=== PATIENT | male | born 1960 | race Caucasian/White ===

== ENCOUNTER 2020-10-28 07:07 | Outpatient (REF) | payer OTHER, SELFPAY ==
[2020-10-28 07:26] LABS: Hematocrit 46.3 % (42-52); Hemoglobin 15.5 g/dl (14.0-18.0); Mean Corpuscular HGB Conc 33.5 g/dl (31.0-36.0); Mean Corpuscular Hemoglobin 29.3 pg (27.0-33.0); Mean Corpuscular Volume 87.5 fL (80-98); Mean Platelet Volume 8.5 fL (9.4-12.4); Platelet Count 258 X10*3/uL (160-400); Red Blood Count 5.29 X10*6/uL (4.60-5.80); Red Cell Distribution Width 13.2 % (11.0-16.0); White Blood Count 6.1 X10*3/uL (4.8-10.8)
[2020-10-28 07:56] LABS: Alanine Aminotransferase 29 U/L (0-40); Albumin Level 4.2 g/dL (3.5-5.0); Alkaline Phosphatase 72 U/L (39-117); Anion Gap 15 (12-20); Aspartate Amino Transferase 22 U/L (5-37); Bilirubin Direct 0.3 mg/dL (0.0-0.5); Bilirubin Total 0.9 mg/dL (0.0-1.0); Blood Urea Nitrogen 31 mg/dL (9-16); Carbon Dioxide 25 mmol/L (22-29); Chloride 103 mmol/L (96-108); Cholesterol 164 mg/dL; Estimated Glomerular Filt Rate > 60; Glucose Random 116 mg/dL (60-115); HDL Cholesterol 30 mg/dL; LDL Cholesterol Calculated 90 mg/dl; Potassium 4.3 mmol/L (3.3-5.1); Sodium 139 mmol/L (135-145); Total Protein 7.3 g/dL (6.5-8.0); Triglycerides 220 mg/dL
[2020-10-28 08:16] LABS: Thyroid Stimulating Hormone 1.24 uIU/mL (0.32-4.0)
== END 2020-10-28 07:08 | disposition home or self-care (01) ==
LOC: HO.LAB 07:07
PROVIDERS: Visit Provider Internal Medicine
DX: I10 Essential (primary) hypertension (principal)
CPT/HCPCS: 36415; 80048; 80061; 80076; 84443; 85027

== ENCOUNTER 2022-02-09 07:00 | Outpatient (REF) | payer OTHER, SELFPAY ==
[2022-02-09 08:05] LABS: Hematocrit 41.7 % (42.0-52.0); Hemoglobin 14.3 g/dl (14.0-18.0); Mean Corpuscular HGB Conc 34.3 g/dl (31.0-36.0); Mean Corpuscular Hemoglobin 29.9 pg (27.0-33.0); Mean Corpuscular Volume 87.2 fL (80.0-98.0); Mean Platelet Volume 8.9 fL (9.4-12.4); Platelet Count 269 X10*3/uL (160-400); Red Blood Count 4.78 X10*6/uL (4.60-5.80); Red Cell Distribution Width 13.2 % (11.0-16.0); White Blood Count 6.8 X10*3/uL (4.8-10.8)
[2022-02-09 08:22] LABS: Alanine Aminotransferase 31 U/L (0-40); Albumin Level 3.9 g/dL (3.5-5.0); Alkaline Phosphatase 73 U/L (39-117); Anion Gap 11 (12-20); Aspartate Amino Transferase 25 U/L (5-37); Bilirubin Direct 0.2 mg/dL (0.0-0.5); Bilirubin Total 0.6 mg/dL (0.0-1.0); Blood Urea Nitrogen 35 mg/dL (9-16); Calcium 9.5 mg/dL (8.4-10.2); Carbon Dioxide 26 mmol/L (22-29); Chloride 105 mmol/L (96-108); Cholesterol 165 mg/dL; Estimated Glomerular Filt Rate 54; Glucose Random 108 mg/dL (60-115); HDL Cholesterol 31 mg/dL; LDL Cholesterol Calculated 101 mg/dl; Potassium 4.2 mmol/L (3.3-5.1); Sodium 138 mmol/L (135-145); Total Protein 7.1 g/dL (6.5-8.0); Triglycerides 169 mg/dL
[2022-02-09 08:46] LABS: Thyroid Stimulating Hormone 1.42 uIU/mL (0.32-4.0)
== END 2022-02-09 07:01 | disposition home or self-care (01) ==
LOC: HO.LAB 07:00
PROVIDERS: PCP Internal Medicine; Visit Provider Internal Medicine
DX: I10 Essential (primary) hypertension (principal); K21.9 Gastro-esophageal reflux disease without esophagitis
CPT/HCPCS: 36415; 80048; 80061; 80076; 84443; 85027

== ENCOUNTER 2023-03-31 06:44 | Outpatient (REF) | payer OTHER, SELFPAY | END 2023-03-31 06:45 | disposition home or self-care (01) | LOC: HO.LAB 06:44 | PROVIDERS: PCP Internal Medicine; Visit Provider Internal Medicine | DX: K21.9 Gastro-esophageal reflux disease without esophagitis (principal); M16.11 Unilateral primary osteoarthritis, right hip; M17.11 Unilateral primary osteoarthritis, right knee; I10 Essential (primary) hypertension | CPT/HCPCS: 36415; 80048; 80061; 80076; 81003; 84443; 85027 ==

== ENCOUNTER 2023-04-04 15:33 | Outpatient (REF) | payer OTHER, SELFPAY | END 2023-04-04 15:34 | disposition home or self-care (01) | LOC: HO.LAB 15:33 | PROVIDERS: Visit Provider Nurse Practitioner Family | DX: Z12.5 Encounter for screening for malignant neoplasm of prostate (principal) | CPT/HCPCS: 36415; 84153 ==

== ENCOUNTER 2023-10-09 14:00 | Outpatient (AMB) | payer OTHER, SELFPAY ==
--- NOTE | 2023-10-09 13:56 | A.OFFPC_ITS ---
Intake Visit Reasons: HTN, GERD [phone] Intake Note: Patient is here to follow up on HTN, GERD. Auto Damage Adjuster Required: No Track Man: Not Required per policy Accompanied by: Self / Same As Patient Allergies No Known Allergies Allergy (Verified 10/14/23 14:15) Medication List - Last Reconciled 10/14/23 by Garrett Simpson MD diclofenac sodium 1% (Arthritis Pain (diclofenac)) 2 grams topical QID PRN enalapril maleate 10 mg PO DAILY hydrochlorothiazide 25 mg PO DAILY lansoprazole 30 mg PO DAILY lidocaine 4% (Aspercreme (lidocaine)) 1 patch topical DAILY PRN tizanidine 4 mg PO BEDTIME Tobacco use date assessed: 04/04/23 Dental Screening Dental Screen Date: 10/09/23 Did you have a dental visit in the last 12 months?: No Did you have a dental problem in the last 6 months where you did not have access to dental care?: No Was dental information given to patient?: No HPI HTN, GERD [phone] HPI Details 62-year-old male wishes to discuss his [facility] health via [employer]. Compliant with medications and reporting no side effects. Able to function do all activities of daily living. Continues to have pain in the right hip. [facility] Medical History Elevated PSA Osteoarthritis of right knee Osteoarthritis of right hip GERD (gastroesophageal reflux disease) Essential (primary) hypertension Surgical History History of hip replacement Family History Father No problems noted. Mother No problems noted. Brother No problems noted. Sister No problems noted. Social History Housing: House Alcohol intake: never Patient Tobacco Use Status: Never used Tobacco e-Cigarette/Vaping Use: Never Used Second Hand Smoke Exposure: No service: No Current occupational status: employed Cognitive needs: No Hearing needs: No Vision needs: Yes (glasses) Questionnaire PHQ-9 Over the last 2 weeks, how often have you been bothered by any of the following problems? 1. Little interest or pleasure in doing things: not at all 2. Feeling down, depressed, or hopeless: not at all 3. Trouble falling or staying asleep, or sleeping too much: not at all 4. Feeling tired or having little energy: not at all 5. Poor appetite or overeating: not at all 6. Feeling bad about yourself - or that you are a failure or have let yourself or your family down: not at all 7. Trouble concentrating on things, such as reading the newspaper or watching television: not at all 8. Moving or speaking so slowly that other people could have noticed. Or the opposite - being so fidgety or restless that you have been moving around a lot more than usual: not at all 9. Thoughts that you would be better off or of hurting yourself in some way: not at all Total score: 0 Depression Screening Interpretation: Negative Depression Screening Done: Yes Source: Developed by Drs. Juan Philippe, Basilia Abernathy, Guanako Webster and colleagues, with an educational tejal from [employer] Thrive Questionnaire Date Thrive assessed: 10/09/23 I am a: Patient What is your living situation today?: I have a steady place to live Within the past 12 months, did the food you bought not last and you didn't have the money to get more?: Never true Within the past 12 months, did you worry whether your food would run out before you got money to buy more?: Never true Do you have trouble paying for medicines?: No Do you have trouble getting transportation to medical appointments?: No Do you have trouble paying your heating and electricity bill?: No Do you have trouble taking care of your child, family member or friend?: No Do you have trouble with day-to-day activities such as bathing, preparing meals, shopping, managing finances, etc.?: No Are you currently unemployed and looking for a job?: No Are you interested in more education?: No Currently or been in a relationship where the following occur: no concerns reported AUDIT C Alcohol Use Questionnaire (AUDIT-C) 1. How often do you have a drink containing alcohol?: Never Total Score: 0 RAN-7 AMB Questionnaire RAN-7 Date RAN - 7 assessed: 10/09/23 Feeling nervous, anxious, or on edge: 0 = Not at all Not being able to stop or control worryin = Not at all Worrying too much about different things: 0 = Not at all Trouble relaxin = Not at all Being so restless that it is hard to sit still: 0 = Not at all Becoming easily annoyed or irritable: 0 = Not at all Feeling afraid as if something awful might happen: 0 = Not at all Total RAN-7 score (0-4 normal; 5-9 mild; 10-14 moderate; 15-21 severe): 0 Source: Developed by Drs. Juan Philippe, Basilia Abernathy, Guanako Webster and colleagues, with an educational tejal from [employer] Review of Systems Const Denies difficulty sleeping and Denies headache(s) Eyes Denies change in vision ENT Denies headache(s) Card Denies chest pain and Denies leg edema Resp Denies cough Neuro Denies headache(s) Physical exam (Primary Care) Tobacco/Smoking Status: Tobacco use Status Tobacco use date assessed 04/04/23 10/09/23 14:00 Patient Tobacco Use Status Never used Tobacco 10/09/23 14:00 e-Cigarette/Vaping Use Never Used 10/09/23 14:00 PHQ-9: PHQ-9 Score PHQ-9: Total score 0 10/09/23 14:51 Depression Screening Interpretation: Negative Thrive Assessment: Date of Thrive Assessment Date Thrive assessed 10/09/23 10/09/23 14:00 Currently or been in a relationship where the following occur: no concerns reported Telehealth Telehealth Location of provider rendering services: practice address Location of patient: address on file Patient Identification confirmed using: Name, : Yes Telehealth method: voice only Patient verbally consented to treatment: Yes Patient verbally consented to billing insurance company: Yes Patient informed of any privacy concerns related to visit: Yes Minutes spent on Phone/Video with Pt.: 15 Assessment and Plan Assessment & Plan (1) Elevated PSA: Code(s): R97.20 - Elevated prostate specific antigen [PSA] Plan: Will call with the results. Blood work has been ordered (2) GERD (gastroesophageal reflux disease): Code(s): K21.9 - Gastro-esophageal reflux disease without esophagitis Plan: Continue current medications. (3) Essential (primary) hypertension: Comment: Continue medications at same dosage. Code(s): I10 - Essential (primary) hypertension Plan: Patient reports that his blood pressure is in range. Continue current medications. Refills done. Blood work has been ordered. Orders: Orders Basic Metabolic Panel 10/09/23 I10 - Essential (primary) hypertension, K21.9 - Gastro-esophageal reflux disease without esophagitis, R97.20 - Elevated prostate specific antigen [PSA] Lipid Panel 10/09/23 I10 - Essential (primary) hypertension, K21.9 - Gastro- esophageal reflux disease without esophagitis, R97.20 - Elevated prostate specific antigen [PSA] Liver Panel 10/09/23 I10 - Essential (primary) hypertension, K21.9 - Gastro- esophageal reflux disease without esophagitis, R97.20 - Elevated prostate specific antigen [PSA] Prostate Specific Antigen Scr 10/09/23 I10 - Essential (primary) hypertension, K21.9 - Gastro-esophageal reflux disease without esophagitis, R97.20 - Elevated prostate specific antigen [PSA] Complete Blood Count no Diff 10/09/23 I10 - Essential (primary) hypertension, K21.9 - Gastro-esophageal reflux disease without esophagitis, R97.20 - Elevated prostate specific antigen [PSA] Thyroid Stimulating Hormone 10/09/23 I10 - Essential (primary) hypertension, K21.9 - Gastro-esophageal reflux disease without esophagitis, R97.20 - Elevated prostate specific antigen [PSA] Medications: Refilled enalapril maleate 10 mg PO DAILY 90 tabs 1RF hydrochlorothiazide 25 mg PO DAILY 90 tabs 1RF lansoprazole 30 mg PO DAILY 90 caps 1RF lidocaine 4% (Aspercreme (lidocaine)) 1 patch topical DAILY PRN 30 ea 0RF pain M16.11 - Unilateral primary osteoarthritis, right hip diclofenac sodium 1% (Arthritis Pain (diclofenac)) 2 grams topical QID PRN 100 grams 0RF pain M16.11 - Unilateral primary osteoarthritis, right hip tizanidine 4 mg PO BEDTIME 90 caps 0RF Coding Level of Care Code Est Pt Level 3 (21529) Diagnoses Elevated PSA R97.20 GERD (gastroesophageal reflux disease) K21.9 Essential (primary) hypertension I10
== END 2023-10-09 16:52 | disposition home or self-care (01) ==
LOC: HO.HMGH 14:00
PROVIDERS: PCP Internal Medicine; Visit Provider Internal Medicine
DX: R97.20 Elevated prostate specific antigen [PSA] (principal); K21.9 Gastro-esophageal reflux disease without esophagitis; I10 Essential (primary) hypertension
CPT/HCPCS: 99213

== ENCOUNTER 2024-04-10 07:03 | Outpatient (REF) | payer OTHER, SELFPAY ==
[2024-04-10 09:12] LABS: Hematocrit 45.1 % (42.0-52.0); Mean Corpuscular HGB Conc 33.3 g/dl (31.0-36.0); Mean Corpuscular Hemoglobin 28.6 pg (27.0-33.0); Mean Corpuscular Volume 85.9 fL (80.0-98.0); Mean Platelet Volume 8.7 fL (9.4-12.4); Platelet Count 291 X10*3/uL (160-400); Red Blood Count 5.25 X10*6/uL (4.60-5.80); Red Cell Distribution Width 14.6 % (11.0-16.0); White Blood Count 6.3 X10*3/uL (4.8-10.8)
[2024-04-10 10:28] LABS: Alanine Aminotransferase 19 U/L (0-40); Albumin Level 3.8 g/dL (3.5-5.0); Alkaline Phosphatase 87 U/L (39-117); Anion Gap 11 (12-20); Aspartate Amino Transferase 19 U/L (5-37); Bilirubin Direct 0.2 mg/dL (0.0-0.5); Bilirubin Total 0.7 mg/dL (0.0-1.0); Blood Urea Nitrogen 33 mg/dL (9-16); Calcium 9.6 mg/dL (8.4-10.2); Carbon Dioxide 27 mmol/L (22-29); Chloride 101 mmol/L (96-108); Cholesterol 147 mg/dL (<200); Estimated Glomerular Filt Rate 58; Glucose Random 104 mg/dL (60-115); HDL Cholesterol 29 mg/dL (>40); LDL Cholesterol Calculated 83 mg/dL (<100); Potassium 4.2 mmol/L (3.3-5.1); Sodium 135 mmol/L (135-145); Total Protein 7.6 g/dL (6.5-8.0); Triglycerides 179 mg/dL (<150)
[2024-04-10 10:30] LABS: Thyroid Stimulating Hormone 2.11 uIU/mL (0.32-4.0)
[2024-04-10 11:20] LABS: Prostate Specific Antigen Scr 4.84 ng/mL (<0.05-4.0)
== END 2024-04-10 07:04 | disposition home or self-care (01) ==
LOC: HO.LAB 07:03
PROVIDERS: PCP Internal Medicine; Visit Provider Internal Medicine
DX: R97.20 Elevated prostate specific antigen [PSA] (principal); K21.9 Gastro-esophageal reflux disease without esophagitis; I10 Essential (primary) hypertension; Z12.5 Encounter for screening for malignant neoplasm of prostate
CPT/HCPCS: 36415; 80048; 80061; 80076; 84153; 84443; 85027

== ENCOUNTER 2024-04-15 14:26 | Outpatient (AMB) | payer OTHER, SELFPAY ==
--- NOTE | 2024-04-15 14:31 | MHC.PC.OV ---
Vital Signs 04/15/24 14:32 Height 6 ft 1 in Weight 244 lb 6 oz BMI 32.2 BP 110/60 Blood Pressure Location Lt brachial Position Sitting Pulse 93 Pulse Source Pulse Oximeter Pulse Oximetry (%) 96 Oxygen Delivery Method Room Air Intake Visit Reasons: pe Intake Note: Patient is here today for a physical. Livestock Brands Inspector Required: No Film Examiner: Not Required per policy Accompanied by: Self / Same As Patient Allergies No Known Allergies Allergy (Verified 04/15/24 14:32) Tobacco use date assessed: 04/15/24 Dental Screening Dental Screen Date: 10/09/23 HPI pe HPI Details 63-year-old male presents to the office for an annual physical. In addition, patient wishes to discuss his hip and knee pain. On March 26, patient fell at work and subsequently injured his right hip and knee. He has been using a cane to ambulate since. He has a brace on the right knee. [facility] Medical History Elevated PSA Osteoarthritis of right knee Osteoarthritis of right hip GERD (gastroesophageal reflux disease) Essential (primary) hypertension Surgical History History of hip replacement Family History Father No problems noted. Mother No problems noted. Brother No problems noted. Sister No problems noted. Social History Housing: House Alcohol intake: never Patient Tobacco Use Status: Never used Tobacco e-Cigarette/Vaping Use: Never Used Second Hand Smoke Exposure: No service: No Current occupational status: employed Cognitive needs: No Hearing needs: No Vision needs: Yes (glasses) Questionnaire Thrive Questionnaire Date Thrive assessed: 10/09/23 RAN-7 AMB Questionnaire RAN-7 Date RAN - 7 assessed: 10/09/23 Source: Developed by Drs. Juan Philippe, Basilia Abernathy, Guanako Webster and colleagues, with an educational tejal from [employer]. Physical exam (Primary Care) Vital Signs: Last Vital Signs Pulse 93 04/15/24 14:32 BP 110/60 04/15/24 14:32 Pulse Ox 96 04/15/24 14:32 Oxygen Delivery Method Room Air 04/15/24 14:32 BMI result Body Mass Index 32.2 Tobacco/Smoking Status: Tobacco use Status Tobacco use date assessed 04/15/24 04/15/24 14:37 Patient Tobacco Use Status Never used Tobacco 04/15/24 14:37 e-Cigarette/Vaping Use Never Used 04/15/24 14:37 Thrive Assessment: Date of Thrive Assessment Date Thrive assessed 10/09/23 04/15/24 14:37 Const General: cooperative and healthy appearing Nutritional Appearance: well nourished Orientation/consciousness: patient oriented x3 Limitations: no limitations HENMT Head: Yes normal to inspection Eyes General: appearance normal, both eyes and all related structures Neck Neck: Yes normal visual inspection Chest Chest palpation & inspection: normal palpation of entire chest wall Resp Effort & Inspection: normal respiratory effort Neuro General: patient oriented x3 Extrem Other: Right hip: No visible bruising. Pain on internal and external rotation. Right knee: Joint line tenderness present. Unable to completely flex the knee. Full extension of the knee. Abduction and adduction possible but with discomfort. Gait: Patient is unable to bear weight completely on the right knee without assistance of a cane. Assessment and Plan Assessment & Plan (1) Contusion, hip: Code(s): S70.00XA - Contusion of unspecified hip, initial encounter Plan: X-rays of the hip and knee have been ordered. Meloxicam will be ordered for pain control. Patient was advised to claim worker's comp and get rest for this injury. (2) Annual physical exam: Code(s): Z00.00 - Encounter for general adult medical examination without abnormal findings Plan: Blood work was reviewed with patient. (3) Obesity (BMI 30.0-34.9): Code(s): E66.9 - Obesity, unspecified Plan: Counseling on the importance of diet and exercise done. (4) Essential (primary) hypertension: Comment: Continue medications at same dosage. Code(s): I10 - Essential (primary) hypertension Plan: Blood pressure is are in range. (5) Elevated PSA: Code(s): R97.20 - Elevated prostate specific antigen [PSA] Plan: Patient never went for his urology appointment that was scheduled last year. His PSA is tracking down from 7.04 to 4.84. Advised to follow up with the urology appt. Orders: Orders XR hip RT w PEL1V Today S70.00XA - Contusion of unspecified hip, initial encounter XR knee RT 3V Today S70.00XA - Contusion of unspecified hip, initial encounter, S83.91XA - Sprain of unspecified site of right knee, initial encounter Medications: Refilled diclofenac sodium 1% (Arthritis Pain (diclofenac)) 2 grams topical QID PRN 100 grams 0RF pain M16.11 - Unilateral primary osteoarthritis, right hip Coding Level of Care Code Est Pt Level 4 (21579) Est Pt Prev Care 40-64y(23770) Diagnoses Contusion, hip S70.00XA Annual physical exam Z00.00 Obesity (BMI 30.0-34.9) E66.9 Essential (primary) hypertension I10 Elevated PSA R97.20
[2024-04-15 14:32] VITALS: BP 110/60; PULSE 93; O2SAT 96; BMI 32.2
== END 2024-04-15 15:09 | disposition home or self-care (01) ==
PROVIDERS: PCP Internal Medicine; Visit Provider Internal Medicine
DX: Z00.00 Encounter for general adult medical examination without abnormal findings (principal); S70.01XA Contusion of right hip, initial encounter; E66.9 Obesity, unspecified; Z68.32 Body mass index [BMI] 32.0-32.9, adult; I10 Essential (primary) hypertension; R97.20 Elevated prostate specific antigen [PSA]
CPT/HCPCS: 99214; 99396

== ENCOUNTER 2024-04-15 15:43 | Outpatient (REF) | payer OTHER, SELFPAY ==
--- NOTE | ~2024-04-15 | XR_ITS ---
EXAMINATION: XR RIGHT HIP WITH AP PELVIS CLINICAL INFORMATION: Pain status-post injury. COMPARISON: Radiographs dated 06/14/2014. TECHNIQUE: AP view of the pelvis and AP and frog-leg lateral views of the right hip were obtained. FINDINGS: Bony alignment and mineralization are normal. There is marked degenerative change of the right acetabular joint space, with severe joint space narrowing and subchondral sclerosis and cyst formation. This finding of the right femoral head. There is an intact left hip total arthroplasty. The sacral iliac joints are symmetric and well-maintained. The pubic symphysis is intact. There is are incompletely characterized degenerative changes of the lumbar spine. A small metallic fragment overlaps the mid pelvis. XR/XR hip RT w PEL1V IMPRESSION: 1. There is marked degenerative change of the right hip. There is flattening of the right femoral head, suggesting avascular necrosis. 2. There is an intact left hip total arthroplasty, partially covered in the [id number]. EXAMINATION: XR KNEE, RIGHT CLINICAL INFORMATION: Sprain injury. COMPARISON: Radiographs dated 05/05/2008. TECHNIQUE: AP, lateral, and both oblique views of the right knee. FINDINGS: Bony alignment and mineralization are normal. There is mild asymmetric narrowing of the lateral joint space compartment. The medial and patellofemoral joint space compartments are well-maintained. There is a small peripheral osteophyte of the superior articular surface of the patella. A small enthesophyte is seen of the upper pole of the patella at the quadriceps tendon insertion. No fracture or dislocation is seen. There is a trace joint effusion. No foreign body is seen. IMPRESSION: 1. There is mild degenerative change of the lateral joint space compartment of the right knee, and minimal degenerative change is seen of the patellofemoral compartment. 2. No fracture or dislocation is seen. 3. There is a trace joint effusion.
--- NOTE | ~2024-04-15 | XR_ITS ---
EXAMINATION: XR RIGHT HIP WITH AP PELVIS CLINICAL INFORMATION: Pain status-post injury. COMPARISON: Radiographs dated 06/14/2014. TECHNIQUE: AP view of the pelvis and AP and frog-leg lateral views of the right hip were obtained. FINDINGS: Bony alignment and mineralization are normal. There is marked degenerative change of the right acetabular joint space, with severe joint space narrowing and subchondral sclerosis and cyst formation. This finding of the right femoral head. There is an intact left hip total arthroplasty. The sacral iliac joints are symmetric and well-maintained. The pubic symphysis is intact. There is are incompletely characterized degenerative changes of the lumbar spine. A small metallic fragment overlaps the mid pelvis. XR/XR knee RT 3V IMPRESSION: 1. There is marked degenerative change of the right hip. There is flattening of the right femoral head, suggesting avascular necrosis. 2. There is an intact left hip total arthroplasty, partially covered in the [id number]. EXAMINATION: XR KNEE, RIGHT CLINICAL INFORMATION: Sprain injury. COMPARISON: Radiographs dated 05/05/2008. TECHNIQUE: AP, lateral, and both oblique views of the right knee. FINDINGS: Bony alignment and mineralization are normal. There is mild asymmetric narrowing of the lateral joint space compartment. The medial and patellofemoral joint space compartments are well-maintained. There is a small peripheral osteophyte of the superior articular surface of the patella. A small enthesophyte is seen of the upper pole of the patella at the quadriceps tendon insertion. No fracture or dislocation is seen. There is a trace joint effusion. No foreign body is seen. IMPRESSION: 1. There is mild degenerative change of the lateral joint space compartment of the right knee, and minimal degenerative change is seen of the patellofemoral compartment. 2. No fracture or dislocation is seen. 3. There is a trace joint effusion.
== END 2024-04-15 15:44 | disposition home or self-care (01) ==
LOC: HO.XRAY 15:43
PROVIDERS: PCP Internal Medicine; Visit Provider Internal Medicine
DX: S83.91XA Sprain of unspecified site of right knee, initial encounter (principal); S70.01XA Contusion of right hip, initial encounter
CPT/HCPCS: 73502; 73562

== ENCOUNTER 2024-05-13 08:22 | Outpatient (AMB) | payer OTHER, SELFPAY ==
[2024-05-13 08:28] VITALS: BP 112/84; PULSE 74; O2SAT 98; BMI 31.7
--- NOTE | 2024-05-13 08:28 | A.OFFPC_ITS ---
Vital Signs 05/13/24 08:28 Height 6 ft 1 in Weight 240 lb BMI 31.7 BP 112/84 Blood Pressure Location Lt brachial Position Sitting Pulse 74 Pulse Source Pulse Oximeter Pulse Oximetry (%) 98 Oxygen Delivery Method Room Air Intake Visit Reasons: Xray Results, xray results, forms Public Relations Coordinator Required: No Accompanied by: Self / Same As Patient Allergies No Known Allergies Allergy (Verified 05/13/24 09:15) Medication List - Last Reconciled 05/13/24 by Garrett Simpson MD diclofenac sodium 1% (Arthritis Pain (diclofenac)) 2 grams topical QID PRN enalapril maleate 10 mg PO DAILY hydrochlorothiazide 25 mg PO DAILY lansoprazole 30 mg PO DAILY tizanidine 4 mg PO BEDTIME Tobacco use date assessed: 04/15/24 Dental Screening Dental Screen Date: 05/13/24 Did you have a dental visit in the last 12 months?: No Did you have a dental problem in the last 6 months where you did not have access to dental care?: No Was dental information given to patient?: Patient has dentist HPI Xray Results HPI Details 63-year-old male presents to the office to discuss his current medical condition. Patient was denied workman's compensation benefits as he filed the claim late. He is unable to walk due to marked discomfort in the right knee. He is unable to climb stairs without support. Uses a cane to walk. [facility] Medical History Elevated PSA Osteoarthritis of right knee Osteoarthritis of right hip GERD (gastroesophageal reflux disease) Essential (primary) hypertension Surgical History History of hip replacement Family History Father No problems noted. Mother No problems noted. Brother No problems noted. Sister No problems noted. Social History Housing: House Alcohol intake: never Patient Tobacco Use Status: Never used Tobacco e-Cigarette/Vaping Use: Never Used Second Hand Smoke Exposure: No service: No Current occupational status: employed Current occupational exposures/hazards: No Cognitive needs: No Hearing needs: No Vision needs: Yes (glasses) Questionnaire Thrive Questionnaire Date Thrive assessed: 10/09/23 RAN-7 AMB Questionnaire RAN-7 Date RAN - 7 assessed: 10/09/23 Source: Developed by Drs. Juan Philippe, Basilia Abernathy, Guanako Webster and colleagues, with an educational tejal from [employer]. Physical exam (Primary Care) Vital Signs: Last Vital Signs Pulse 74 05/13/24 08:28 BP 112/84 05/13/24 08:28 Pulse Ox 98 05/13/24 08:28 Oxygen Delivery Method Room Air 05/13/24 08:28 BMI result Body Mass Index 31.7 Tobacco/Smoking Status: Tobacco use Status Tobacco use date assessed 04/15/24 05/13/24 08:33 Patient Tobacco Use Status Never used Tobacco 05/13/24 08:33 e-Cigarette/Vaping Use Never Used 05/13/24 08:33 Thrive Assessment: Date of Thrive Assessment Date Thrive assessed 10/09/23 05/13/24 08:33 Extrem Other: Right knee: Effusion present. Limited range of motion. Unable to flex the leg at the knee without significant pain Assessment and Plan Assessment & Plan (1) Right knee sprain: Code(s): S83.91XA - Sprain of unspecified site of right knee, initial encounter Plan: I suspect patient has had a significant ligament strain or meniscal tear. Patient is going to require further imaging. An orthopedic referral has been requested. Meanwhile, for work patient has been given a letter that states he can not work for at least 10 weeks. Coding Level of Care Code Est Pt Level 4 (58742) Complex EM visit Add On G2211 Diagnoses Right knee sprain S83.91XA
== END 2024-05-13 09:15 | disposition home or self-care (01) ==
PROVIDERS: PCP Internal Medicine; Visit Provider Internal Medicine
DX: S83.91XA Sprain of unspecified site of right knee, initial encounter (principal)
CPT/HCPCS: 99214

== ENCOUNTER 2024-06-01 11:22 | Outpatient (AMB) | payer OTHER, SELFPAY ==
--- NOTE | 2024-06-01 11:37 | MHC.OFFVIS ---
Intake Visit Reasons: New Pt - right knee sprain Intake Note: Demetrius is a 63 year old male who presents today as a new patient with complaints of right knee pain s/p fall DOI: ~03/28/24. Patient reports he fell while walking his dog, landing on the right knee and then rolled landing on his leg. He is unable to walk without discomfort in the right knee. He is unable to climb stairs without support. Patient utilizes a cane to walk. He expresses difficulty with flexion on his right knee and continued constant sharp/throbbing pain on the anterior aspect. He takes Advil, rubs topical cream on it and says this gives mild temporary relief. He uses a brace however this only offers him stability and not pain relief. He is interested in discussing cortisone injection. Right knee x-rays were done on 04/15/24. Allergies No Known Allergies Allergy (Verified 06/01/24 11:45) HPI HPI New Pt - right knee sprain: Details: Patient is a 63-year-old male who presents for evaluation of right knee pain, ongoing since 03/28/2024. Patient reports that on this date, he fell while walking his dog, landing on the right knee and twisting. Since that date, the patient reports that he has been unable to ambulate without pain in the right knee, and he has had to use a cane with ambulation due to this. The patient reports this pain is primarily located in the anteromedial aspect of the right knee. The patient reports that he does take Advil, and use topical pain medication, with minimal relief. Patient states that he also uses a knee brace with ambulation, to minimal effect. The patient states he would like to discuss a cortisone injection at this time. No other acute complaints or concerns at this time. [facility] Medical History Elevated PSA Osteoarthritis of right knee Osteoarthritis of right hip GERD (gastroesophageal reflux disease) Essential (primary) hypertension Surgical History History of hip replacement Family History Father No problems noted. Mother No problems noted. Brother No problems noted. Sister No problems noted. Social History Housing: House Alcohol intake: never Patient Tobacco Use Status: Never used Tobacco e-Cigarette/Vaping Use: Never Used Second Hand Smoke Exposure: No service: No Current occupational status: employed Current occupational exposures/hazards: No Cognitive needs: No Hearing needs: No Vision needs: Yes (glasses) Review of Systems Const All systems reviewed & are unremarkable except as noted in HPI and below Physical Exam Extrem Other: On inspection, there is no visible deformity of the left knee No edema, erythema, ecchymosis noted No lacerations, abrasions, open areas No evidence of infection Patient reports tenderness to palpation about the anterior knee and the medial and lateral joint Patient reports no tenderness to palpation of the posterior knee Patient is able to extend the left knee to 0 degrees and flex to approximately 100 degrees, restricted due to pain No ligamentous laxity noted Distal sensation intact Capillary refill brisk Positive Mansoor's in the medial joint line of the right knee Results Reviewed Results Reviewed: X-rays obtained in the office today and independently reviewed by me, Qeu Guzman PA-C, demonstrate [id number] degenerative changes of the tibiofemoral joint of the right knee. No fracture or acute bony abnormality noted Assessment & Plan Assessment & Plan (1) Internal derangement of right knee: Code(s): M23.91 - Unspecified internal derangement of right knee Category: Medical Plan 1. Internal derangement of right knee Date of injury 03/28/2024 I educated the patient about this condition This time, I informed the patient that my index of suspicion for a potential meniscal injury is high Therefore, I ordered an MRI of the right knee without contrast to assess the soft tissue structures of the right knee I also informed the patient that, due to the acute, traumatic onset of symptoms and the sharp severe pain that he is experiencing, a cortisone injection would likely not of much help, as these are most effective in eliminating the dull, achy pain associated with baseline osteoarthritis of the knee Patient is amenable to this plan I also referred the patient to physical therapy for range of motion, strengthening, stabilization of the right knee for suspected internal derangement right knee Patient will follow-up after MRI for results review and discussion of further treatment options, sooner with any acute concerns Orders: Orders MR knee RT wo con 06/01/24 M17.11 - Unilateral primary osteoarthritis, right knee PT Evaluation and Treatment 06/01/24 M23.91 - Unspecified internal derangement of right knee Coding Level of Care Code New Pt Level 3 (90144) Diagnoses Internal derangement of right knee M23.91
== END 2024-06-01 12:18 | disposition home or self-care (01) ==
PROVIDERS: PCP Internal Medicine
DX: M23.91 Unspecified internal derangement of right knee (principal)
CPT/HCPCS: 99203

== ENCOUNTER → 2024-06-01 11:22 | Outpatient (BNVA) | payer OTHER, SELFPAY | PROVIDERS: PCP Internal Medicine ==

== ENCOUNTER 2024-06-11 14:41 | Outpatient (AMB) | payer OTHER, SELFPAY ==
--- NOTE | 2024-06-11 15:08 | A.OFFVIS_ITS ---
Intake Visit Reasons: elevated PSA Intake Note: Patient is present for ELEVATED PSA Urology Medication:NONE Antibiotic Allergy:NONE Blood Thinner:NONE Technical Delivery Manager Required: No Allergies No Known Allergies Allergy (Verified 08/06/24 09:24) HPI Comments Details: Demetrius is a pleasant male. He is seen for the following urologic conditions - variable PSA - lower tract symptoms Lower urinary tract symptoms Predominantly urgency and frequency Recommend bladder ultrasound trial of alpha josé miguel Variable PSA - 04/20 7, 04/21 4.8 PFSH Medical History Elevated PSA Osteoarthritis of right knee Osteoarthritis of right hip GERD (gastroesophageal reflux disease) Essential (primary) hypertension Surgical History History of hip replacement Family History Father No problems noted. Mother No problems noted. Brother No problems noted. Sister No problems noted. Social History Housing: House Alcohol intake: never Patient Tobacco Use Status: Never used Tobacco e-Cigarette/Vaping Use: Never Used Second Hand Smoke Exposure: No service: No Current occupational status: employed Current occupational exposures/hazards: No Cognitive needs: No Hearing needs: No Vision needs: Yes (glasses) Review of Systems Const Denies chills and Denies fever(s) Card Reports no additional complaints and Denies syncope Resp Denies cough GI Denies abdominal pain and Denies heartburn Reports as per HPI and Denies change in libido Neuro Denies syncope Psych Denies change in libido Endo Denies change in libido Physical Exam Const General: cooperative, healthy appearing, comfortable and no acute distress Orientation/consciousness: patient oriented x3 HEENT Face and sinus: Yes normal facial exam Mouth: moist mucous membranes Neck Neck: Yes normal visual inspection, Yes full ROM and Yes trachea midline Chest Chest palpation & inspection: normal inspection of the chest Resp Effort & Inspection: normal respiratory effort, able to speak in complete sentences and no respiratory distress GI Inspection: Yes normal to inspection Back/Spine/Pelvis Cervical Spine: normal cervical lordosis Thoracic/Lumbar Spine: thoracic and lumbar spine normal to inspection Skin General skin exam: no rashes or lesions noted Neuro General: patient oriented x3, gait normal, tone normal and moves all extremities Extrem General: Yes normal to inspection and Yes capillary refill normal Assessment & Plan Assessment & Plan (1) Urinary urgency: Code(s): R39.15 - Urgency of urination Category: Medical Plan Trial Flomax Orders: Orders US bladder 06/11/24 R39.15 - Urgency of urination Medications: New tamsulosin (Flomax) 0.4 mg PO BEDTIME 30 tabs 1RF 30 days R39.15 - Urgency of urination Patient Instructions: Imaging studies, laboratory and physical exam results were discussed and reviewed in detail. No major barriers to patient understanding were identified. An opportunity to ask questions regarding the treatment plan was provided. All questions were answered. The patient expressed understanding and agreement with the above treatment plan. The patient is aware they should contact our office by phone for worsening of their current condition or the appearance of new urologic symptoms. Compliance is encouraged with any medications and followup testing that is ordered. It is a privilege to participate in the urologic care of your patient. If you have any questions or concerns regarding treatment for the above conditions, or other urologic issues, please do not hesitate to contact me. The office telephone contact is [phone]. This note is constructed using voice recognition software. While every effort has been made to ensure accuracy contract assistant errors may have been included. Yours sincerely, Dr Gustavo Romero MD, [facility] - Urology Providers of Expert, Compassionate Care for the Genitourinary System Coding Level of Care Code New Pt Level 4 (00210) Diagnoses Urinary urgency R39.15
== END 2024-06-11 15:36 | disposition home or self-care (01) ==
PROVIDERS: PCP Internal Medicine; Visit Provider Urology
DX: R39.15 Urgency of urination (principal)
CPT/HCPCS: 99204

== ENCOUNTER → 2024-06-11 14:41 | Outpatient (BNVA) | payer OTHER, SELFPAY | PROVIDERS: PCP Internal Medicine; Visit Provider Urology ==

== ENCOUNTER 2024-07-19 11:00 | Outpatient (RCR) | payer OTHER, SELFPAY ==
[2024-06-18 13:02] VITALS: BP 120/63; PULSE 81
--- NOTE | 2024-06-18 13:51 | MHC.PT.EP ---
[facility] [place] [facility] [place] [facility] [place] Office [address] [phone] F: [phone] F: [phone] F: [phone] F: [phone] Physical Therapy Plan of Care Date of Evaluation: 06/18/24 Date of Surgery: NA Diagnosis: Internal derangement of R knee Assessment: Demetrius is a 63 year old male who is referred to PT for internal derangement of R knee . He reports of having pain in R knee due to fall at work about 3 months back. He tripped while getting out the elevator and landed on his knee. On PT examination today he presented with TTP at the medial side of patella, medial joint line, 2-4/10 pain in R Knee with standing, walking, getting in and out of car, decreased R hip and knee ROM, decreased R LE strength, altered posture, balance and gait. He lives alone and is independent with all ADLS but has pain with them. 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 He would benefit from skilled PT to address the aforementioned impairments and improve tolerance to functional activities. Frequency and Duration: The patient will be seen 2/week for 5 weeks. Short Term Goals: 1. Pt will have 50% decrease in pain which will enable him to tolerate sitting without pain 2. Pt will be able to move his R knee through full plane of motion without pain which will enable him to negotiate stairs without limitations in knee in 3 weeks. Picker Machine Operator Goals: 1. Pt will demonstrate an increase in muscle strength by 1 grade which will enable him to tolerate standing and walking without pain in 5 weeks. 2. Pt will be independent with all HEP for symptom management and maintenance following d/c in 5 weeks. Treatment Plan: Modalities to reduce pain, spasms and effusion. Manual therapy to restore motion and function. Therapeutic exercise to improve strength and flexibility. Neuromuscular re-education for posture and balance. Therapeutic activities to return to functional activities of daily living. Electronically signed by: Trupti Larkin PT DPT Please sign and return to therapist. Thank you for your referral.
--- NOTE | 2024-07-19 12:01 | MHC.PT.DC ---
[facility] [place] [facility] [place] Office [place] Office [address] [phone] F: [phone] F: [phone] F: [phone] F: [phone] Physical Therapy Discharge Report Diagnosis: Internal derangement of R knee Date of Surgery: NA Date of Evaluation: 06/18/24 Date of Discharge: 07/19/24 Treatments to Date: 8 Cancellations to Date: 0 No Shows to Date: 0 Discharge Status: Recommend MD Follow-up Discharge Summary: Demetrius has completed 8 PT visits and arrived stating his pain is about the same. He has not noticed much improvements with PT. He stated that he has been performing his HEP. Due to lack of improvement anticipate d/c from PT. Demetrius is in agreement with the plan. Electronically signed by: Trupti Larkin PT DPT Please sign and return to therapist. Thank you for your referral.
== END 2024-07-19 12:02 | disposition home or self-care (01) ==
LOC: HO.PT 11:00
PROVIDERS: PCP Internal Medicine
DX: M23.91 Unspecified internal derangement of right knee (principal)
CPT/HCPCS: 97110; 97161; 97530

== ENCOUNTER 2024-07-30 10:19 | Outpatient (AMB) | payer OTHER, SELFPAY ==
--- NOTE | 2024-07-30 10:20 | A.OFFVIS_ITS ---
Intake Visit Reasons: OV- Right knee sprain, discuss PT/MRI Intake Note: Demetrius is a 63 year old male who presents today for a follow up on right knee pain s/p fall DOI: 03/28/24. Patient would like to discuss ordering an MRI now that he has completed PT. Allergies No Known Allergies Allergy (Verified 07/30/24 10:26) HPI HPI OV- Right knee sprain, discuss PT/MRI: Details: Patient is a 63-year-old male who presents for repeat evaluation after completing course of PT, and to discuss order of an MRI. MRI was attempted to be ordered at last visit, but per the patient's insurance company they would not cover an MRI until the patient completed 6 weeks of physical therapy. Today, the patient reports that he is still experiencing significant discomfort in his right knee, and he feels that the pain in his right leg has worsened since starting PT. patient states he would like an MRI to see what is going on who his knee and determine if he has any further intervention indicated. No other acute complaints or concerns this time [facility] Medical History Elevated PSA Osteoarthritis of right knee Osteoarthritis of right hip GERD (gastroesophageal reflux disease) Essential (primary) hypertension Surgical History History of hip replacement Family History Father No problems noted. Mother No problems noted. Brother No problems noted. Sister No problems noted. Social History Housing: House Alcohol intake: never Patient Tobacco Use Status: Never used Tobacco e-Cigarette/Vaping Use: Never Used Second Hand Smoke Exposure: No service: No Current occupational status: employed Current occupational exposures/hazards: No Cognitive needs: No Hearing needs: No Vision needs: Yes (glasses) Physical Exam Extrem Other: On inspection, there is no visible deformity of the left knee No edema, erythema, ecchymosis noted No lacerations, abrasions, open areas No evidence of infection Patient reports tenderness to palpation about the anterior knee and the medial and lateral joint Patient reports no tenderness to palpation of the posterior knee Patient is able to extend the left knee to 0 degrees and flex to approximately 100 degrees, restricted due to pain No ligamentous laxity noted Distal sensation intact Capillary refill brisk Positive Mansoor's in the medial joint line of the right knee Results Reviewed Results Reviewed: X-rays obtained in the office at last visit and independently reviewed by me, Que Guzman PA-C, demonstrate no fracture or acute bony abnormality of the right knee. Assessment & Plan Assessment & Plan (1) Internal derangement of right knee: Code(s): M23.91 - Unspecified internal derangement of right knee Category: Medical Plan 1. Internal derangement of right knee Date of injury 03/28/2024 I educated the patient about this condition This time, I informed the patient that my index of suspicion for a potential meniscal injury is high Therefore, I once again ordered an MRI of the right knee without contrast to assess the soft tissue structures of the right knee I also informed the patient that, due to the acute, traumatic onset of symptoms and the sharp severe pain that he is experiencing, a cortisone injection would likely not of much help, as these are most effective in eliminating the dull, achy pain associated with baseline osteoarthritis of the knee Patient is amenable to this plan Patient has completed 6 week course of physical therapy as required by insurance Patient will follow-up after MRI for results review and discussion of further treatment options, sooner with any acute concerns Orders: Orders MR knee RT wo con Today M17.11 - Unilateral primary osteoarthritis, right knee, M23.91 - Unspecified internal derangement of right knee Coding Level of Care Code Est Pt Level 3 (24544) Diagnoses Internal derangement of right knee M23.91
== END 2024-07-30 10:46 | disposition home or self-care (01) ==
LOC: HO.HOS 10:19
PROVIDERS: PCP Internal Medicine
DX: M23.91 Unspecified internal derangement of right knee (principal)
CPT/HCPCS: 99213

== ENCOUNTER → 2024-07-30 10:19 | Outpatient (BNVA) | payer OTHER, SELFPAY | PROVIDERS: PCP Internal Medicine ==

== ENCOUNTER 2024-08-05 14:49 | Outpatient (AMB) | payer OTHER, SELFPAY ==
--- NOTE | 2024-08-05 14:51 | A.OFFPC_ITS ---
Vital Signs 08/05/24 14:52 Height 6 ft 1 in Weight 248 lb 6 oz BMI 32.8 BP 134/86 Blood Pressure Location Lt brachial Position Sitting Pulse 83 Pulse Source Pulse Oximeter Pulse Oximetry (%) 96 Oxygen Delivery Method Room Air Intake Visit Reasons: 2 mo follow up knee Intake Note: Patient is here to follow up on Right knee sprain. 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 Accompanied by: Self / Same As Patient Allergies No Known Allergies Allergy (Verified 08/06/24 09:24) Medication List - Last Reconciled 08/06/24 by Garrett Simpson MD diclofenac sodium 1% (Arthritis Pain (diclofenac)) 2 grams topical QID PRN enalapril maleate 10 mg PO DAILY hydrochlorothiazide 25 mg PO DAILY lansoprazole 30 mg PO DAILY meloxicam 15 mg PO DAILY tamsulosin (Flomax) 0.4 mg PO BEDTIME 30 days tizanidine 4 mg PO BEDTIME Tobacco use date assessed: 08/05/24 Dental Screening Dental Screen Date: 05/13/24 HPI 2 mo follow up knee HPI Details 63-year-old male presents to the office to discuss his chronic medical conditions. Patient continues to have pain and swelling in the right knee. He is seeing orthopedics and an MRI has been scheduled. He has completed 6 weeks of physical therapy. Unable to work. Patient also saw a urologist in an ultrasound of the prostate has been scheduled. His PSA is declining. [facility] Medical History Elevated PSA Osteoarthritis of right knee Osteoarthritis of right hip GERD (gastroesophageal reflux disease) Essential (primary) hypertension Surgical History History of hip replacement Family History Father No problems noted. Mother No problems noted. Brother No problems noted. Sister No problems noted. Social History Housing: House Alcohol intake: never Patient Tobacco Use Status: Never used Tobacco e-Cigarette/Vaping Use: Never Used Second Hand Smoke Exposure: No service: No Current occupational status: employed Current occupational exposures/hazards: No Cognitive needs: No Hearing needs: No Vision needs: Yes (glasses) Questionnaire Thrive Questionnaire Date Thrive assessed: 10/09/23 RAN-7 AMB Questionnaire RAN-7 Date RAN - 7 assessed: 10/09/23 Source: Developed by Drs. Juan Philippe, Basilia Abernathy, Guanako Webster and colleagues, with an educational tejal from [employer]. Physical exam (Primary Care) Vital Signs: Last Vital Signs Pulse 83 08/05/24 14:52 BP 134/86 08/05/24 14:52 Pulse Ox 96 08/05/24 14:52 Oxygen Delivery Method Room Air 08/05/24 14:52 BMI result Body Mass Index 32.8 Tobacco/Smoking Status: Tobacco use Status Tobacco use date assessed 08/05/24 08/05/24 15:01 Patient Tobacco Use Status Never used Tobacco 08/05/24 15:01 e-Cigarette/Vaping Use Never Used 08/05/24 15:01 Thrive Assessment: Date of Thrive Assessment Date Thrive assessed 10/09/23 08/05/24 15:01 Const General: cooperative and healthy appearing Nutritional Appearance: well nourished Orientation/consciousness: patient oriented x3 Limitations: no limitations HENMT Head: Yes normal to inspection Eyes General: appearance normal, both eyes and all related structures Neck Neck: Yes normal visual inspection Chest Chest palpation & inspection: normal palpation of entire chest wall Resp Effort & Inspection: normal respiratory effort Neuro General: patient oriented x3 Extrem Other: Knee: In a brace. Patient walking with a limp.. Office Procedures Flu Questionnaire Does the patient have a severe egg allergy?: No Does the patient have severe life threatening allergies?: No Does the patient have a fever or illness today?: No Has the patient ever had Guillain-Epps Syndrome?: No Has the patient ever had any past reaction to a flu shot?: No Immunizations Fluarix Triv [id number] (PF) 45 mcg (15 mcg x 3)/0.5 mL IM syringe Performing Provider: Garrett Simpson MD [place]forming [place] [facility] [place] [facility] [place] [facility] Administered by: Cheryl Schmitz LPN on 08/05/24 15:08 Dose Route Admin Location Dispensed Lot Number Expiration Date [facility] [place] Oyster Opener 0.5 mL IM Left Deltoid 0.5 mL [id number] 03/28/25 [id number] [employer] VIS Given Date VIS Provided VIS Publication Date 08/05/24 Single Vaccine 21 Eligibility Eligibility Date Funding Source Not [facility] Eligible 08/05/24 Private Coding Level of Care Code Est Pt Level 4 (37244) Complex EM visit Add On G2211 Diagnoses Internal derangement of right knee M23.91 Elevated PSA R97.20 Essential (primary) hypertension I10 Assessment & Plan Assessment & Plan (1) Internal derangement of right knee: Code(s): M23.91 - Unspecified internal derangement of right knee Category: Medical Plan: Continue current workup. Patient was encouraged to see the orthopedic surgeon. (2) Elevated PSA: Code(s): R97.20 - Elevated prostate specific antigen [PSA] Category: Medical Plan: Encouraged to see the urologist for the prostate ultrasound. (3) Essential (primary) hypertension: Comment: Continue medications at same dosage. Code(s): I10 - Essential (primary) hypertension Category: Medical Plan: Blood pressure is in range. Continue medications at same dosage. Orders: Orders Influenza [id number] Immunization 08/05/24 Z23 - Encounter for immunization
[2024-08-05 14:52] VITALS: BP 134/86; PULSE 83; O2SAT 96; BMI 32.8
== END 2024-08-05 15:13 | disposition home or self-care (01) ==
LOC: HO.HMCH 14:49
PROVIDERS: PCP Internal Medicine; Visit Provider Internal Medicine
DX: M23.91 Unspecified internal derangement of right knee (principal); R97.20 Elevated prostate specific antigen [PSA]; I10 Essential (primary) hypertension

== ENCOUNTER → 2024-08-05 14:49 | Outpatient (BNVA) | payer OTHER, SELFPAY | PROVIDERS: PCP Internal Medicine; Visit Provider Internal Medicine | DX: M23.91 Unspecified internal derangement of right knee (principal); R97.20 Elevated prostate specific antigen [PSA]; I10 Essential (primary) hypertension; Z23 Encounter for immunization | CPT/HCPCS: 90471; 90656 ==

== ENCOUNTER 2024-08-06 08:33 | Outpatient (AMB) | payer OTHER, SELFPAY ==
--- NOTE | 2024-08-06 08:52 | MHC.OFFVIS ---
Intake Visit Reasons: New prob-right hip pain Intake Note: Demetrius a 63 year old male who presents today for an evaluation of right hip pain. Patient reports having a fall at work on 03/26/24. He was seen by his PCP who ordered x-rays and referred patient to orthopedics. He was seen for his right knee pain and awaiting an MRI, as patient tried and failed PT. His pain starts in his knee and radiates up the anterior aspect of leg traveling to the lateral aspect of hip. He has a throbbing pain with ambulation. Limited ROM. He uses a cane with ambulation. Allergies No Known Allergies Allergy (Verified 08/06/24 09:24) Medication List - Last Reconciled 08/06/24 by Mare Catherine PA-C diclofenac sodium 1% (Arthritis Pain (diclofenac)) 2 grams topical QID PRN enalapril maleate 10 mg PO DAILY hydrochlorothiazide 25 mg PO DAILY lansoprazole 30 mg PO DAILY meloxicam 15 mg PO DAILY tamsulosin (Flomax) 0.4 mg PO BEDTIME 30 days tizanidine 4 mg PO BEDTIME HPI HPI New prob-right hip pain: Details: left RENETTA done by Dr Ramos 10 years ago 63-year-old male who presents to the office today for an evaluation of right hip pain after a fall at work, 03/26/24. 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 He denies any pain prior to his injury. He currently states he has limited ROM and throbbing pain at the buttock region and lateral aspect of his right hip that radiates down to his knee and leg. His pain is aggravated with prolonged walking. He denies any groin pain. He finds transient relief with Aleve. He has a history of left RENETTA by Dr. Ramos about 10 years ago. [facility] Medical History Elevated PSA Osteoarthritis of right knee Osteoarthritis of right hip GERD (gastroesophageal reflux disease) Essential (primary) hypertension Surgical History (Reviewed 08/06/24 @ 09:25 by Tanvi Hurt [facility]) History of hip replacement Family History Father No problems noted. Mother No problems noted. Brother No problems noted. Sister No problems noted. Social History (Reviewed 08/06/24 @ 09:25 by Tanvi Hurt [facility]) Housing: House Alcohol intake: never Patient Tobacco Use Status: Never used Tobacco e-Cigarette/Vaping Use: Never Used Second Hand Smoke Exposure: No service: No Current occupational status: employed Current occupational exposures/hazards: No Cognitive needs: No Hearing needs: No Vision needs: Yes (glasses) Review of Systems Const All systems reviewed & are unremarkable except as noted in HPI and below Physical Exam Const General: cooperative, healthy appearing, comfortable, no acute distress, well developed and alert Orientation/consciousness: patient oriented x3 HEENT Head: Yes normal to inspection, Yes normocephalic and Yes atraumatic Eyes General: appearance normal, both eyes and all related structures Resp Effort & Inspection: normal respiratory effort and able to speak in complete sentences Cardio Rate: regular rate Peripheral pulses: Peripheral pulses 2+ throughout GI Palpation (GI): Soft to palpation Skin Lesions: no lesions Rashes: no rashes Neuro General: patient oriented x3 Extrem Other: Right hip: Normal to inspection. He has significantly limited ROM of right hip and mild tenderness over the lateral aspect of hip that extends to the thigh. NVI. Results Reviewed Results Reviewed: X-rays of the left hip obtained on 04/15/24 show intact left hip arthroplasty without sign of loosening or fracture. X-rays of the right hip obtained in the office today show end stage OA. Assessment & Plan Assessment & Plan (1) Strain of right hip: Code(s): S76.011A - Strain of muscle, fascia and tendon of right hip, initial encounter Category: Medical Plan We discussed options today which include physical therapy of right hip however he is currently working on treatment for his right knee and is pending an MRI for further evaluation. He will work on some home exercises for right hip and continue exercises for the right knee. Once he has his knee pain resolved, if he continues to have discomfort in his right hip and continued limitations, he will contact Dr. Sneed for an appointment to discuss possible surgical intervention for right hip arthroplasty. Patient Instructions: Scribed for Mare Catherine PA-C, by Jonatan Abhang, medical recruiter, on 08/06/2024 at 8:45 AM EST.? I, Mrae Cathernie PA-C, have personally reviewed and agree with the information entered by the scribe. Coding Level of Care Code Est Pt Level 3 (89507) Complex EM visit Add On G2211 Diagnoses Strain of right hip S76.011A
== END 2024-08-06 10:08 | disposition home or self-care (01) ==
PROVIDERS: PCP Internal Medicine; Visit Provider Physician Assistant
DX: S76.011A Strain of muscle, fascia and tendon of right hip, initial encounter (principal); Z96.642 Presence of left artificial hip joint
CPT/HCPCS: 99213

== ENCOUNTER 2024-08-28 09:22 | Outpatient (REF) | payer OTHER, SELFPAY ==
--- NOTE | ~2024-08-28 | MR_ITS ---
EXAMINATION: MR KNEE WITHOUT CONTRAST, RIGHT CLINICAL INFORMATION: Right knee pain, osteoarthritis COMPARISON: Radiographs 04/15/2024 TECHNIQUE: MRI of the knee without contrast was performed using routine sequences on a high-field scanner. Image quality is degraded by patient motion artifact. FINDINGS: MENISCI: Medial Meniscus: No definite tear. Lateral Meniscus: Inner margin truncation tear of the meniscal body. LIGAMENTS: Cruciate: Intact Collateral: Intact EXTENSOR MECHANISM: Intact ARTICULAR CARTILAGE/BONE: Patellofemoral Compartment: Mild cartilage thinning and surface irregularity along the central trochlea. Medial Compartment: Mild peripheral cartilage thinning of the tibia medially. Lateral Compartment: Mild peripheral cartilage thinning of the tibia laterally. JOINT FLUID AND BURSAE: No significant joint effusion. MR/MR knee RT wo con IMPRESSION: 1. Inner margin truncation tear of the lateral meniscus body. 2. Mild tricompartmental osteoarthritis. No significant joint effusion. 3. Mild edema and fatty atrophy of the lateral gastrocnemius muscle. Electronically signed by: Indio Blancas MD 09/03/2024 04:32 PM [facility]
== END 2024-08-28 09:23 | disposition home or self-care (01) ==
LOC: HO.MRI 09:22
PROVIDERS: PCP Internal Medicine
DX: M17.11 Unilateral primary osteoarthritis, right knee (principal); M23.91 Unspecified internal derangement of right knee
CPT/HCPCS: 73721

== ENCOUNTER 2024-09-06 11:18 | Outpatient (AMB) | payer OTHER, SELFPAY ==
--- NOTE | 2024-09-06 11:37 | MHC.OFFVIS ---
Vital Signs 09/06/24 11:38 Height 6 ft 1 in Weight 248 lb BMI 32.7 Intake Visit Reasons: OV- RT knee MRI review Intake Note: Demetrius is a 63 year old male who presents today for an MRI review of his right knee. right knee pain s/p fall DOI: ~03/28/24. Patient reports he fell while walking his dog, landing on the right knee and then rolled landing on his leg. Allergies No Known Allergies Allergy (Verified 08/06/24 09:24) HPI HPI OV- RT knee MRI review: Details: Demetrius is a 63 year old male who presents today s/p fall DOI: ~03/28/24. Patient reports he fell while at work on 03/26/2024. He has also been having ipsilateral knee pain. Overall he can not ambulate normally. He is having difficult time working.. He was pain-free approximately 6 months ago and able to function at work without pain but he fell, at work in the end of February and felt immediate hip and knee pain. He had a left hip replacement done about a decade ago and is doing well. [facility] Medical History Elevated PSA Osteoarthritis of right knee Osteoarthritis of right hip GERD (gastroesophageal reflux disease) Essential (primary) hypertension Surgical History History of hip replacement Family History Father No problems noted. Mother No problems noted. Brother No problems noted. Sister No problems noted. Social History Housing: House Alcohol intake: never Patient Tobacco Use Status: Never used Tobacco e-Cigarette/Vaping Use: Never Used Second Hand Smoke Exposure: No service: No Current occupational status: employed Current occupational exposures/hazards: No Cognitive needs: No Hearing needs: No Vision needs: Yes (glasses) Physical Exam Vital Signs: BMI result Body Mass Index 32.7 Extrem Other: Demetrius has very poor gait with minimal internal rotation and a positive impingement test on the right. Results Reviewed Results Reviewed: I personally reviewed relevant radiographs. Severe right hip OA with collapse due to underlying avascular necrosis. Left RENETTA in expected post operative position with no hardware complications or evidence of loosening Assessment & Plan Assessment & Plan (1) Avascular necrosis of bone of right hip: Code(s): M87.051 - Idiopathic aseptic necrosis of right femur Category: Medical Plan: This is a 63-year-old gentleman who sustained a workplace injury approximately 6 months ago and has been unable to ambulate comfortably since then. His radiographs demonstrate right femoral head collapse and I recommend hip arthroplasty. He can not ambulate, his range of motion is severely limited and he is suffering and pain. His right leg is shortened and he would benefit from arthroplasty. I discussed the surgery with him. I discussed the risks, benefits and alternatives to surgery including, but not limited to, the risk of infection, dislocation, fracture as well as medical complications associated with surgery. He can not work at this time. We will begin the preoperative clearance process and if he is cleared medically we can try to do surgery as soon as possible given the extent of collapse in the severity of his discomfort. Coding Level of Care Code Est Pt Level 4 (85694) Diagnoses Avascular necrosis of bone of right hip M87.051
[2024-09-06 11:38] VITALS: BMI 32.7
== END 2024-09-06 12:36 | disposition home or self-care (01) ==
PROVIDERS: PCP Internal Medicine; Visit Provider Orthopaedic Surgery
DX: M87.051 Idiopathic aseptic necrosis of right femur (principal)
CPT/HCPCS: 99214

== ENCOUNTER 2024-09-14 12:22 | Outpatient (REF) | payer OTHER, SELFPAY | END 2024-09-14 12:23 | disposition home or self-care (01) | LOC: HO.US 12:22 | PROVIDERS: PCP Internal Medicine; Visit Provider Urology | DX: R39.15 Urgency of urination (principal) | CPT/HCPCS: 76857 ==

== ENCOUNTER 2024-09-30 09:36 | Outpatient (AMB) | payer OTHER, SELFPAY ==
--- NOTE | 2024-09-30 09:55 | MHC.PC.OV ---
Vital Signs 09/30/24 09:58 Height 6 ft 1 in Weight 252 lb 6 oz BMI 33.3 BP 124/80 Blood Pressure Location Lt brachial Position Sitting Pulse 78 Pulse Source Pulse Oximeter Pulse Oximetry (%) 97 Oxygen Delivery Method Room Air Intake Visit Reasons: Muna adame/Dr. Sneed 11/09/24 Allergies No Known Allergies Allergy (Verified 10/10/24 12:13) Medication List - Last Reconciled 10/10/24 by Garrett Simpson MD diclofenac sodium 1% (Arthritis Pain (diclofenac)) 2 grams topical QID PRN enalapril maleate 10 mg PO DAILY hydrochlorothiazide 25 mg PO DAILY ibuprofen (Advil) 400 mg PO Q8H PRN lansoprazole 30 mg PO DAILY meloxicam 15 mg PO DAILY [Raised toilet seat duration - 99 days] tamsulosin (Flomax) 0.4 mg PO BEDTIME 30 days tizanidine 4 mg PO BEDTIME walker Folding Front wheeled walker Tobacco use date assessed: 08/05/24 Dental Screening Dental Screen Date: 05/13/24 HPI Muna adame/Dr. Sneed 11/09/24 HPI Details 66 year-old male presents to the office for a follow-up visit. After the work-related injury, patient is now scheduled for a right hip arthroplasty. The surgery scheduled for November 09. [facility] Medical History (Updated 10/08/24 @ 10:02 by Madelyn Porter RN) Ambulates with cane Low back pain Slow to wake up after anesthesia Elevated PSA Osteoarthritis of right knee Osteoarthritis of right hip GERD (gastroesophageal reflux disease) Essential (primary) hypertension Surgical History (Updated 10/08/24 @ 09:56 by Madelyn Porter RN) History of tonsillectomy and adenoidectomy History of hip replacement Family History Father No problems noted. Mother No problems noted. Brother No problems noted. Sister No problems noted. Social History (Updated 10/08/24 @ 09:58 by Madelyn Porter RN) Household Members: None Housing: House Are you a primary transitional care nurse to a significant other at home: No Do you presently have visiting nurse or other home services: No 75 years or older and lives alone: No Alcohol intake: never e-Cigarette/Vaping Use: Never Used Second Hand Smoke Exposure: No Use of substances other than those prescribed or required for medical reasons: No Advance Directives: No Advance Directives Information Provided: Yes Advance Directives on File: No Healthcare Proxy: No service: No Current occupational status: employed Current occupational exposures/hazards: No Cognitive needs: No Hearing needs: No Vision needs: Yes (glasses) Questionnaire Thrive Questionnaire Date Thrive assessed: 10/09/23 RAN-7 AMB Questionnaire RAN-7 Date RAN - 7 assessed: 10/09/23 Source: Developed by Drs. Juan Philippe, Basilia Abernathy, Guanako Webster and colleagues, with an educational tejal from [employer]. Physical exam (Primary Care) Vital Signs: Last Vital Signs Pulse 78 09/30/24 09:58 BP 124/80 09/30/24 09:58 Pulse Ox 97 09/30/24 09:58 Oxygen Delivery Method Room Air 09/30/24 09:58 BMI result Body Mass Index 33.3 Tobacco/Smoking Status: Tobacco use Status Tobacco use date assessed 08/05/24 09/30/24 09:55 Patient Tobacco Use Status 10/08/24 09:56 e-Cigarette/Vaping Use Never Used 09/30/24 09:55 Thrive Assessment: Date of Thrive Assessment Date Thrive assessed 10/09/23 09/30/24 09:55 Const General: cooperative and healthy appearing Nutritional Appearance: well nourished Orientation/consciousness: patient oriented x3 Limitations: no limitations HENMT Head: Yes normal to inspection Eyes General: appearance normal, both eyes and all related structures Neck Neck: Yes normal visual inspection Chest Chest palpation & inspection: normal palpation of entire chest wall Resp Effort & Inspection: normal respiratory effort Neuro General: patient oriented x3 Coding Level of Care Code Est Pt Level 3 (05504) Diagnoses Essential (primary) hypertension I10 Avascular necrosis of bone of right hip M87.051 Assessment & Plan Assessment & Plan (1) Essential (primary) hypertension: Comment: Continue medications at same dosage. Code(s): I10 - Essential (primary) hypertension Category: Medical Plan: Continue medications at same dosage (2) Avascular necrosis of bone of right hip: Code(s): M87.051 - Idiopathic aseptic necrosis of right femur Category: Medical Plan: Proceed for surgery when scheduled. Orders: Orders Liver Panel 10/09/24 I10 - Essential (primary) hypertension Complete Blood Count no Diff 10/09/24 I10 - Essential (primary) hypertension ECG 12 lead EKG 09/30/24 I10 - Essential (primary) hypertension Basic Metabolic Panel 10/09/24 I10 - Essential (primary) hypertension Lipid Panel 10/09/24 I10 - Essential (primary) hypertension Thyroid Stimulating Hormone 10/09/24 I10 - Essential (primary) hypertension UA and rflx microscopic 10/09/24 I10 - Essential (primary) hypertension
[2024-09-30 09:58] VITALS: BP 124/80; PULSE 78; O2SAT 97; BMI 33.3
== END 2024-09-30 11:49 | disposition home or self-care (01) ==
PROVIDERS: PCP Internal Medicine; Visit Provider Internal Medicine
DX: I10 Essential (primary) hypertension (principal); M87.051 Idiopathic aseptic necrosis of right femur

== ENCOUNTER → 2024-10-11 08:45 | Outpatient (BNVA) | payer OTHER, SELFPAY | PROVIDERS: PCP Internal Medicine | DX: Z01.818 Encounter for other preprocedural examination (principal) ==

== ENCOUNTER → 2024-10-11 10:40 | Outpatient (BNV) | payer OTHER, SELFPAY | PROVIDERS: PCP Internal Medicine; Visit Provider Internal Medicine Cardiovascular Disease | DX: Z01.818 Encounter for other preprocedural examination (principal) | CPT/HCPCS: 93010 ==

== ENCOUNTER 2024-10-26 13:40 | Outpatient (AMB) | payer OTHER, SELFPAY ==
--- NOTE | 2024-10-26 13:47 | MHC.OFFVIS ---
Intake Visit Reasons: Bladder US(SET) Intake Note: Patient is present for BLADDER US Urology Medication:TAMSULOSIN Antibiotic Allergy:NONE Blood Thinner:NONE TODAY'S PVR: 29ML'S Service Technician Required: No Allergies No Known Allergies Allergy (Verified 10/26/24 13:48) HPI Comments Details: Demetrius is a pleasant male. He is a patient of Dr. Simpson. He is seen for the following urologic conditions - variable PSA - lower tract symptoms Three-month follow-up Discussed bladder ultrasound Bladder US - 09/21 Prevoid bladder volume is 432 mL. Postvoid bladder volume is 55 mL.. Enlarged prostate with volume 40.9 mL. Diffuse trabeculation of the bladder wall. Refill tamsulosin 90 days Discussed GreenLight laser procedure Review in six-month Lower urinary tract symptoms Predominantly urgency and frequency Tamsulosin Variable PSA - 04/20 7, 04/21 4.8 PFSH Medical History (Updated 10/26/24 @ 14:17 by Gustavo Romero MD) [place] (hard of hearing) Balance problem KRANTHI (obstructive sleep apnea) Ambulates with cane Low back pain Slow to wake up after anesthesia Elevated PSA Osteoarthritis of right knee Osteoarthritis of right hip GERD (gastroesophageal reflux disease) Essential (primary) hypertension Surgical History (Updated 10/11/24 @ 09:30 by Madelyn Porter RN) History of tonsillectomy and adenoidectomy History of hip replacement Family History Father No problems noted. Mother No problems noted. Brother No problems noted. Sister No problems noted. Social History (Updated 10/11/24 @ 10:10 by Madelyn Porter RN) Household Members: None Housing: House Are you a primary manager career to a significant other at home: No Do you presently have visiting nurse or other home services: No 75 years or older and lives alone: No Alcohol intake: never Patient Tobacco Use Status: Never used Tobacco e-Cigarette/Vaping Use: Never Used Second Hand Smoke Exposure: No service: No Current occupational status: employed Current occupational exposures/hazards: No Cognitive needs: No Hearing needs: No Vision needs: Yes (glasses) Review of Systems Const Denies chills and Denies fever(s) Card Reports no additional complaints and Denies syncope Resp Denies cough GI Denies abdominal pain and Denies heartburn Reports as per HPI and Denies change in libido Neuro Denies syncope Psych Denies change in libido Endo Denies change in libido Physical Exam Const General: cooperative, healthy appearing, comfortable and no acute distress Orientation/consciousness: patient oriented x3 HEENT Face and sinus: Yes normal facial exam Mouth: moist mucous membranes Neck Neck: Yes normal visual inspection, Yes full ROM and Yes trachea midline Chest Chest palpation & inspection: normal inspection of the chest Resp Effort & Inspection: normal respiratory effort, able to speak in complete sentences and no respiratory distress GI Inspection: Yes normal to inspection Back/Spine/Pelvis Cervical Spine: normal cervical lordosis Thoracic/Lumbar Spine: thoracic and lumbar spine normal to inspection Skin General skin exam: no rashes or lesions noted Neuro General: patient oriented x3, gait normal, tone normal and moves all extremities Extrem General: Yes normal to inspection and Yes capillary refill normal Office Procedures Post Void Residual Post Residual Void Post Void Residual (PVR): 29 52604-Oded Void Residual by ultrasound Assessment & Plan Assessment & Plan (1) Bladder outlet obstruction: Code(s): N32.0 - Bladder-neck obstruction Category: Medical Plan Six-month follow-up Refill tamsulosin Medications: Changed From tamsulosin (Flomax) 0.4 mg PO BEDTIME 30 days 30 tabs 1RF R39.15 - Urgency of urination To tamsulosin (Flomax) 0.4 mg PO BEDTIME 90 days 90 tabs 1RF R39.15 - Urgency of urination Patient Instructions: Imaging studies, laboratory and physical exam results were discussed and reviewed in detail. No major barriers to patient understanding were identified. An opportunity to ask questions regarding the treatment plan was provided. All questions were answered. The patient expressed understanding and agreement with the above treatment plan. The patient is aware they should contact our office by phone for worsening of their current condition or the appearance of new urologic symptoms. Compliance is encouraged with any medications and followup testing that is ordered. It is a privilege to participate in the urologic care of your patient. If you have any questions or concerns regarding treatment for the above conditions, or other urologic issues, please do not hesitate to contact me. The office telephone contact is [phone]. This note is constructed using voice recognition software. While every effort has been made to ensure accuracy adjunct physical education instructor errors may have been included. Yours sincerely, Dr Gustavo Romero MD, JO[facility] - Urology Providers of Expert, Compassionate Care for the Genitourinary System Coding Level of Care Code Est Pt Level 3 (83204) Diagnoses Bladder outlet obstruction N32.0 CPT Codes Post Residual Void - PVR CPT Code: 60084-[place] Void Residual by ultrasound ([id number])
== END 2024-10-26 14:20 | disposition home or self-care (01) ==
PROVIDERS: PCP Internal Medicine; Visit Provider Urology
DX: N32.0 Bladder-neck obstruction (principal)
CPT/HCPCS: 99213

== ENCOUNTER → 2024-10-26 13:40 | Outpatient (BNVA) | payer OTHER, SELFPAY | PROVIDERS: PCP Internal Medicine; Visit Provider Urology | DX: Z01.818 Encounter for other preprocedural examination (principal); E66.9 Obesity, unspecified; G47.33 Obstructive sleep apnea (adult) (pediatric); R06.02 Shortness of breath; N32.0 Bladder-neck obstruction | CPT/HCPCS: 51798 ==

== ENCOUNTER 2024-10-26 15:22 | Outpatient (AMB) | payer OTHER, SELFPAY ==
[2024-10-26 15:31] VITALS: BP 120/82; PULSE 84; O2SAT 97; BMI 33.4
--- NOTE | 2024-10-26 15:31 | A.OFFVIS_ITS ---
Vital Signs 10/26/24 15:31 Height 6 ft 1 in Weight 253 lb 8.505 oz BMI 33.4 BP 120/82 Blood Pressure Location Lt brachial Position Sitting Pulse 84 Pulse Source Pulse Oximeter Pulse Oximetry (%) 97 Oxygen Delivery Method Room Air Intake Visit Reasons: total hip replacment Intake Note: pt is here for pre-op clearance, Dr. Heller 11/09 at . pre-op testing area stated pt had heavy breathing and wanted a clearance, pt does not use cpap, he sleeps in a recliner. He does not wake up at all. Grinder Set Up Operator Universal Required: No Allergies No Known Allergies Allergy (Verified 10/26/24 15:50) Medication List - Last Reconciled 10/26/24 by Radha Martinez MD diclofenac sodium 1% (Arthritis Pain (diclofenac)) 2 grams topical QID PRN enalapril maleate 10 mg PO DAILY hydrochlorothiazide 25 mg PO DAILY ibuprofen (Advil) 400 mg PO Q8H PRN lansoprazole 30 mg PO DAILY [Raised toilet seat duration - 99 days] tamsulosin (Flomax) 0.4 mg PO BEDTIME 90 days tizanidine 4 mg PO BEDTIME walker Folding Front wheeled walker Do you need a note to return to daycare/school/sports/work: No HPI HPI total hip replacment: Details: MR Marry WOLFE WAS LAST SEEN BY ME A PATIENT ABOUT 7 OR 8 YEARS AGO. HE WAS BEING TREATED FOR OBSTRUCTIVE SLEEP APNEA. HE HAD LOST ABOUT 20 LB OF WEIGHT AND FELT THAT HE DID NOT HAVE SLEEP APNEA ANYMORE, SO STOPPED USING THE CPAP. HE ALSO HAS BEEN SLEEPING IN A RECLINER, AND FELT THAT HE DID NOT NEED THE CPAP HE HAS NO HISTORY OF SMOKING OR DRINKING. HE HAS NO PREVIOUS HISTORY OF BRONCHIAL ASTHMA OR COPD. 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 HE SLIPPED OFF THE ELEVATOR FELL ON THE FLOOR AND HAS FRACTURED RIGHT HIP. HE IS TO UNDERGO RIGHT HIP ARTHROPLASTY. DURING HIS PREOP EXAM, HE WAS NOTED TO HAVE SOME WHEEZING. BUT MR. WOLFE DENIES HAVING ANY SHORTNESS OF BREATH OR COUGH. [facility] Medical History (Updated 10/26/24 @ 16:31 by Radha Martinez MD) [place] (hard of hearing) Balance problem KRANTHI (obstructive sleep apnea) Ambulates with cane Low back pain Slow to wake up after anesthesia Elevated PSA Osteoarthritis of right knee Osteoarthritis of right hip GERD (gastroesophageal reflux disease) Essential (primary) hypertension Surgical History History of tonsillectomy and adenoidectomy History of hip replacement Family History Father No problems noted. Mother No problems noted. Brother No problems noted. Sister No problems noted. Social History Household Members: None Housing: House Are you a primary director of home care hospice to a significant other at home: No Do you presently have visiting nurse or other home services: No 75 years or older and lives alone: No Alcohol intake: never Patient Tobacco Use Status: Never used Tobacco e-Cigarette/Vaping Use: Never Used Second Hand Smoke Exposure: No service: No Current occupational status: employed Current occupational exposures/hazards: No Cognitive needs: No Hearing needs: No Vision needs: Yes (glasses) Review of Systems Const All systems reviewed & are unremarkable except as noted in HPI and below Eyes Reports no additional complaints ENT Denies nasal congestion and Denies nasal discharge Card Denies chest pain, Denies irregular heart rhythm and Denies leg edema Resp Reports as per HPI GI Reports no additional complaints Reports nocturia Musc Reports back pain and Reports arthralgias (RT HIP ) Skin/Breast Reports system reviewed and no additional complaints, except as documented Neuro Reports no additional complaints Psych Reports no additional complaints Physical Exam Vital Signs: Last Vital Signs Pulse 84 10/26/24 15:31 BP 120/82 10/26/24 15:31 Pulse Ox 97 10/26/24 15:31 Oxygen Delivery Method Room Air 10/26/24 15:31 BMI result Body Mass Index 33.4 Const General: healthy appearing (EXCEPT FOR BEING OVERWEIGHT.), comfortable, no acute distress, alert and awake Orientation/consciousness: patient oriented x3 HEENT Head: Yes normal to inspection General nose exam: No nasal polyps present and No nasal discharge present Face and sinus: Yes sinuses nontender Mouth: oropharynx normal Throat: Yes posterior oropharynx normal Eyes General: appearance normal, both eyes and all related structures Neck Neck: Yes normal visual inspection, Yes no lymphadenopathy, Yes trachea midline and Yes no JVD Thyroid: Thyroid normal Chest Chest palpation & inspection: normal inspection of the chest, normal palpation of entire chest wall and no tenderness Resp Other: PERCUSSION NOTE IS RESONANT, BREATH SOUNDS ARE EQUAL ON BOTH SIDES. I DID NOT HEAR ANY WHEEZES OR CREPITATIONS. Cardio Palpation: normal PMI Rate: regular rate Rhythm: regular rhythm Heart sounds: no gallops and no murmurs GI Palpation (GI): Soft to palpation, nontender, No hepatosplenomegaly present and no masses Auscultation: normal bowel sounds Back/Spine/Pelvis Thoracic/Lumbar Spine: thoracic and lumbar spine normal to inspection and thoraco-lumbar ROM limited Skin General skin exam: no rashes or lesions noted Neuro General: patient oriented x3 and no focal motor deficits Cranial nerves: Yes CN's II-XII intact bilaterally Extrem General: Yes normal to inspection, Yes no clubbing, cyanosis or edema and Yes no calf tenderness Psych Speech and movement: Normal speech and movement present Results Reviewed Results Reviewed: SPIROMETRY IN OFFICE Assessment & Plan Assessment & Plan (1) Obesity (BMI 30.0-34.9): Comment: HE HAS MODERATE OBESITY CURRENT WEIGHT 33.4, Code(s): E66.9 - Obesity, unspecified Category: Medical Plan: ADVISE THAT HE NEEDS TO CUT DOWN THE INTAKE OF CALORIES ESPECIALLY CARBOHYDRATES. AFTER THE HIP SURGERY HE SHOULD GO THROUGH REHAB PROGRAM AND THEN START WALKING ON A DAILY BASIS . (2) KRANTHI (obstructive sleep apnea): Comment: HAS PAST HISTORY OF OBSTRUCTIVE SLEEP APNEA AND USED CPAP FOR QUITE A FEW YEARS. BUT THEN STOPPED USING MORE THAN 5 YEARS AGO. HE CLAIMS THAT HE SLEEPS OKAY WITHOUT ANY PROBLEM BECAUSE HE IS SLEEPING MOSTLY IN A RECLINER AT PRESENT HE DOES NOT HAVE ANY SIGNIFICANT SNORING OR DAYTIME SLEEPINESS. Code(s): G47.33 - Obstructive sleep apnea (adult) (pediatric) Category: Medical Plan: NO NEED OF USING THE CPAP, BUT HE IS INSTRUCTED TO LOSE MORE WEIGHT. (3) SOB (shortness of breath): Comment: HE HAS ONLY MINIMAL DEGREE OF SHORTNESS OF BREATH ONCE IN A WHILE. NOW THAT HE IS NOT WALKING FAST HE DOES NOT EXPERIENCE ANY DYSPNEA ON EXERTION. ALSO DOES NOT HAVE ANY HISTORY OF WHEEZING . NO HISTORY OF SMOKING. SO HIS MILD SHORTNESS OF BREATH OFF AND ON MAY BE MORE DUE TO POOR PHYSICAL CONDITIONING. NOTE : SPIROMETRY IN THE OFFICE TODAY IS ESSENTIALLY NORMAL . HE HAS GOOD VITAL CAPACITY AND THERE IS NO EVIDENCE OF OBSTRUCTIVE AIRWAY DISORDER. Code(s): R06.02 - Shortness of breath Category: Medical Plan: * FAR PRE UP PULMONARY CLEARANCE IS CONCERNED, HE HAS NO CONTRAINDICATION. AND FROM PULMONARY POINT OF VIEW HE IS CLEARED FOR SURGERY. Coding Level of Care Code Est Pt Level 4 (76184) Diagnoses Obesity (BMI 30.0-34.9) E66.9 KRANTHI (obstructive sleep apnea) G47.33 SOB (shortness of breath) R06.02
== END 2024-10-26 16:23 | disposition home or self-care (01) ==
PROVIDERS: PCP Internal Medicine; Visit Provider Internal Medicine
DX: E66.9 Obesity, unspecified (principal); G47.33 Obstructive sleep apnea (adult) (pediatric); R06.02 Shortness of breath
CPT/HCPCS: 99214

== ENCOUNTER 2024-11-04 08:54 | Outpatient (AMB) | payer OTHER, SELFPAY ==
--- NOTE | 2024-11-03 15:49 | A.OFFVIS_ITS ---
Vital Signs 11/04/24 08:59 Height 6 ft 1 in Weight 253 lb BMI 33.4 Intake Visit Reasons: Pre-Op: R RENETTA w/NE 11/09/24 Intake Note: Demetrius is a 63 year old male who presents today for a pre operative appointment - he is booked for Right RENETTA w/NE 11/09/24. Allergies No Known Allergies Allergy (Verified 11/04/24 09:00) Medication List - Last Reconciled 11/04/24 by Mare Catherine PA-C diclofenac sodium 1% (Arthritis Pain (diclofenac)) 2 grams topical QID PRN enalapril maleate 10 mg PO DAILY hydrochlorothiazide 25 mg PO DAILY ibuprofen (Advil) 400 mg PO Q8H PRN lansoprazole 30 mg PO DAILY [Raised toilet seat duration - 99 days] tamsulosin (Flomax) 0.4 mg PO BEDTIME 90 days tizanidine 4 mg PO BEDTIME walker Folding Front wheeled walker HPI Comments Details: Mr Nath presents to the office today for preop visit. He is scheduled for right total hip arthroplasty with Dr. Sneed. He continues to have ongoing pain and difficulty with ambulation in the right hip, which is affecting his quality of life; therefore, he has elected to move forward with surgery. [facility] Medical History (Updated 10/26/24 @ 16:31 by Radha Martinez MD) [place] (hard of hearing) Balance problem KRANTHI (obstructive sleep apnea) Ambulates with cane Low back pain Slow to wake up after anesthesia Elevated PSA Osteoarthritis of right knee Osteoarthritis of right hip GERD (gastroesophageal reflux disease) Essential (primary) hypertension Surgical History History of tonsillectomy and adenoidectomy History of hip replacement Family History Father No problems noted. Mother No problems noted. Brother No problems noted. Sister No problems noted. Social History Household Members: None Housing: House Are you a primary managed care coordinator to a significant other at home: No Do you presently have visiting nurse or other home services: No 75 years or older and lives alone: No Alcohol intake: never Patient Tobacco Use Status: Never used Tobacco e-Cigarette/Vaping Use: Never Used Second Hand Smoke Exposure: No service: No Current occupational status: employed Current occupational exposures/hazards: No Cognitive needs: No Hearing needs: No Vision needs: Yes (glasses) Review of Systems Const All systems reviewed & are unremarkable except as noted in HPI and below Physical Exam Vital Signs: BMI result Body Mass Index 33.4 Const General: cooperative, healthy appearing, comfortable, no acute distress, well developed and alert Orientation/consciousness: patient oriented x3 HEENT Head: Yes normal to inspection, Yes normocephalic and Yes atraumatic Eyes General: appearance normal, both eyes and all related structures Neck Neck: Yes normal visual inspection and Yes no lymphadenopathy Resp Effort & Inspection: normal respiratory effort and able to speak in complete sentences Cardio Rate: regular rate Peripheral pulses: Peripheral pulses 2+ throughout GI Inspection: Yes normal to inspection Palpation (GI): Soft to palpation Skin General skin exam: no rashes or lesions noted Neuro General: patient oriented x3 Extrem Other: poor gait with minimal internal rotation and a positive impingement test on the right. Psych Appearance: grossly normal Mental Status: mental status grossly normal Results Reviewed Results Reviewed: Xrays were obtained in the office today and personally reviewed by me of the right hip for surgical planning Assessment & Plan Assessment & Plan (1) Avascular necrosis of bone of right hip: Code(s): M87.051 - Idiopathic aseptic necrosis of right femur Category: Medical Plan: I discussed in detail the procedure and what to expect pre and post operatively. We discussed the risks, benefits and alternatives to the surgery as well as the rehabilitation course. The risks; which include, but are not limited to infection, bleeding, nerve injury, ongoing pain, swelling, and stiffness, perioperative risk of injury to bones and soft tissues, and blood clots. I?ve answered all questions and with their understanding they have consented to move forward with Right total hip arthroplasty with Dr. Sneed Orders: Orders PT Evaluation and Treatment 11/03/24 Z96.641 - Presence of right artificial hip joint XR hip RT min 2V Today M25.551 - Pain in right hip Coding Level of Care Code Est Pt Level 3 (72847) Complex EM visit Add On G2211 Diagnoses Avascular necrosis of bone of right hip M87.051
[2024-11-04 08:59] VITALS: BMI 33.4
== END 2024-11-04 09:18 | disposition home or self-care (01) ==
PROVIDERS: PCP Internal Medicine; Visit Provider Physician Assistant
DX: M87.051 Idiopathic aseptic necrosis of right femur (principal)
CPT/HCPCS: 99024

== ENCOUNTER → 2024-11-04 08:56 | Outpatient (BNV) | payer OTHER, SELFPAY | PROVIDERS: Visit Provider Radiology Diagnostic Radiology | DX: M16.11 Unilateral primary osteoarthritis, right hip (principal) | CPT/HCPCS: 73502 ==

== ENCOUNTER 2024-11-04 11:50 | Outpatient (REF) | payer OTHER, SELFPAY ==
--- NOTE | ~2024-11-04 | XR_ITS ---
EXAMINATION: XR HIP 2 OR MORE VIEWS RIGHT HISTORY: M25.551 - Pain in right hip COMPARISON: Comparison is made with the prior examination dated 04/15/2024. FINDINGS: Two AP views of the pelvis and two views of the right hip are submitted. Osseous mineralization is normal. There is no fracture or dislocation. Again seen is severe osteoarthritis with joint space narrowing, subchondral sclerosis, subchondral cyst formation, and remodeling of the femoral head. The patient is status post left total hip arthroplasty. The soft tissues are unremarkable. XR/XR hip RT min 2V IMPRESSION: Severe osteoarthritis of the right hip as described. Electronically signed by: Juan Alexis MD 11/04/2024 10:26 AM [facility]
== END 2024-11-04 11:51 | disposition home or self-care (01) ==
LOC: HO.HOSX 11:50
PROVIDERS: Visit Provider Physician Assistant
DX: M25.551 Pain in right hip (principal); M16.11 Unilateral primary osteoarthritis, right hip
CPT/HCPCS: 73502

== ENCOUNTER 2024-11-09 05:56 | Day surgery (SDC) | payer OTHER, SELFPAY ==
--- NOTE | 2024-10-11 | ECG_ITS ---
Test Reason : PRE OP Blood Pressure : */* mmHG Vent. Rate : 85 BPM Atrial Rate : 85 BPM P-R Int : 134 ms QRS Dur : 114 ms QT Int : 370 ms P-R-T Axes : 45 3 50 degrees QTcB Int : 440 ms Normal sinus rhythm Normal ECG No previous ECGs available Referred By: Aleyda Loaiza Electronically Signed By: Karthik Arnold
[2024-10-11 09:32] VITALS: BP 143/88; PULSE 83; RESP 16; O2SAT 95; BMI 30.6
--- NOTE | 2024-10-11 10:08 | HO.ANESPROP2 ---
Documented by User: Aleyda Loaiza NP 11/08/24 10:42 HPI - Anesthesia Eval Consult details Narrative: 63yo M for Right Hip Total Replacement, 11/09/24 Medically optimized per PCP No recent illness No CP with very minimal activity. Puffing breathing with short distance. [place] KRANTHI: Does not use CPAP GERD: ppi controls PMFSH Active Problems Active Problems: All Active Problems Avascular necrosis of bone of right hip (Acute) Strain of right hip (Acute) Urinary urgency (Acute) Internal derangement of right knee (Acute) Obesity (BMI 30.0-34.9) (Acute) Screening for prostate cancer (Acute) Annual physical exam (Acute) Elevated PSA (Acute) Osteoarthritis of right hip (Acute) Osteoarthritis of right knee (Acute) GERD (gastroesophageal reflux disease) (Acute) Essential (primary) hypertension (Acute) Past Medical History Medical History [place] (hard of hearing) Balance problem KRANTHI (obstructive sleep apnea) Ambulates with cane Low back pain Slow to wake up after anesthesia Elevated PSA Osteoarthritis of right knee Osteoarthritis of right hip GERD (gastroesophageal reflux disease) Essential (primary) hypertension Family History Family History Father No problems noted. Mother No problems noted. Brother No problems noted. Sister No problems noted. Family history of problems with anesthesia: No Surgical History Surgical History History of tonsillectomy and adenoidectomy History of hip replacement History of Problems with Anesthesia: No Social History Social History Household Members: None Housing: House Are you a primary lawn care specialist to a significant other at home: No Do you presently have visiting nurse or other home services: No Alcohol intake: never Patient Tobacco Use Status: Never used Tobacco e-Cigarette/Vaping Use: Never Used Second Hand Smoke Exposure: No Use of substances other than those prescribed or required for medical reasons: No Have you been hit, kicked, punched, or otherwise hurt by someone within the past year? If so, by whom?: No Are you DNR?: No Advance Directives: No (will bring dos) Advance Directives Information Provided: Yes Advance Directives on File: No Recently lost weight without trying: No service: No Current occupational status: employed Current occupational exposures/hazards: No Cognitive needs: No Hearing needs: No Vision needs: Yes (glasses) Meds Allergies Allergy/AdvReac Type Severity Reaction Status Date / Time No Known Allergies Allergy Verified 11/09/24 06:26 Home Medications ?Medication ?Instructions ?Recorded ?Confirmed ?Last Taken ?Type ibuprofen 200 mg tablet (Advil) 400 mg PO Q8H PRN Pain 10/08/24 11/04/24 11/02/24 History Exam Height,Weight and Vital Signs: Height 6 ft 3 in Weight 111.13 kg Last Vital Signs Pulse 83 10/11/24 09:32 Resp 16 10/11/24 09:32 BP 143/88 H 10/11/24 09:32 Pulse Ox 95 10/11/24 09:32 O2 Del Method Room Air 10/11/24 09:32 Pertinent Lab Results Pertinent Lab Results: Lab Results 10/11/24 10/11/24 11/04/24 Range/Units 10:00 10:27 09:38 WBC 8.3 (4.8-10.8) X10*3/uL RBC 5.59 (4.60-5.80) X10*6/uL Hgb 16.4 (14.0-18.0) g/dl Hct 47.6 (42.0-52.0) % MCV 85.2 (80.0-98.0) fL MCH 29.3 (27.0-33.0) pg MCHC 34.5 (31.0-36.0) g/dl RDW 14.0 (11.0-16.0) % Plt Count 237 (160-400) X10*3/uL MPV 8.5 L (9.4-12.4) fL Absolute Nucleated RBC 0.000 (0.0-0.012) X10*3/uL Nucleated RBC % (auto) 0.0 (0.0-0.2) /100WBC Sodium 138 (135-145) mmol/L Potassium 4.5 (3.3-5.1) mmol/L Chloride 106 (96-108) mmol/L Carbon Dioxide 25 (22-29) mmol/L Anion Gap 12 (12-20) BUN 27 H (9-16) mg/dL Creatinine 1.01 (0.5-1.4) mg/dL Estim Creat Clear Calc 103.3 Estimated GFR > 60 Fasting Glucose 102 H (60-99) mg/dL Calcium 9.5 (8.4-10.2) mg/dL Total Bilirubin 0.9 (0.0-1.0) mg/dL Direct Bilirubin 0.3 (0.0-0.5) mg/dL AST 27 (5-37) U/L ALT 25 (0-40) U/L Alkaline Phosphatase 89 (39-117) U/L Total Protein 7.8 (6.5-8.0) g/dL Albumin 4.1 (3.5-5.0) g/dL Triglycerides 156 H (<150) mg/dL Cholesterol 152 (<200) mg/dL LDL Cholesterol, Calc 89 (<100) mg/dL HDL Cholesterol 32 L (>40) mg/dL TSH 1.40 (0.32-4.0) uIU/mL Nasal Screen MRSA (PCR) NEGATIVE (Negative) Nasal S. aureus Screen NEGATIVE (Negative) Nasal MRSA/S.aureus Interp SEE NOTE Blood Type O Positive Antibody Screen NEGATIVE Narrative Narrative: EKG 09/2024 Vent. Rate : 85 BPM Atrial Rate : 85 BPM P-R Int : 134 ms QRS Dur : 114 ms QT Int : 370 ms P-R-T Axes : 45 3 50 degrees QTcB Int : 440 ms Normal sinus rhythm Normal ECG No previous ECGs available Airway Mallampati Class: III TM Dist: >3cm Neck ROM: Full Loose/Missing/Broken Teeth: Yes (lower molars broken, molars missing) Heart: RRR Lungs: CTAB Assessment and Plan Assessment Anesthesia Assessment: Anesthesia Plan Discussed and PAT Visit Final Anesthetic Review Family History of Problems with Anesthesia: No History of Problems with Anesthesia: No Documented by User: Jeimy Harrison MD 11/09/24 07:25 [facility] Past Medical History Medical History [place] (hard of hearing) Balance problem KRANTHI (obstructive sleep apnea) Ambulates with cane Low back pain Slow to wake up after anesthesia Elevated PSA Osteoarthritis of right knee Osteoarthritis of right hip GERD (gastroesophageal reflux disease) Essential (primary) hypertension Family History Family History Father No problems noted. Mother No problems noted. Brother No problems noted. Sister No problems noted. Surgical History Surgical History History of tonsillectomy and adenoidectomy History of hip replacement Social History Social History Household Members: None Housing: House Are you a primary lawn care specialist to a significant other at home: No Do you presently have visiting nurse or other home services: No Alcohol intake: never Patient Tobacco Use Status: Never used Tobacco e-Cigarette/Vaping Use: Never Used Second Hand Smoke Exposure: No Use of substances other than those prescribed or required for medical reasons: No Have you been hit, kicked, punched, or otherwise hurt by someone within the past year? If so, by whom?: No Are you DNR?: No Advance Directives: No (will bring dos) Advance Directives Information Provided: Yes Advance Directives on File: No Recently lost weight without trying: No service: No Current occupational status: employed Current occupational exposures/hazards: No Cognitive needs: No Hearing needs: No Vision needs: Yes (glasses) Meds Allergies Allergy/AdvReac Type Severity Reaction Status Date / Time No Known Allergies Allergy Verified 11/09/24 06:26 Home Medications ?Medication ?Instructions ?Recorded ?Confirmed ?Last Taken ?Type ibuprofen 200 mg tablet (Advil) 400 mg PO Q8H PRN Pain 10/08/24 11/04/24 11/02/24 History Assessment and Plan Final Anesthetic Review NPO: Yes ASA Class: III Final Preanesthetic Review: No Changes in Pt Med Stat, Meds/Allgs Chart Reviewed, Consent Obtained/Reviewed and Anes Risks/Benef Reviewed Patient Risk: Intermediate Anesthetic Plan Anesthetic Plan: GA Disposition: Standard PACU
[2024-10-11 10:42] LABS: Hematocrit 47.6 % (42.0-52.0); Hemoglobin 16.4 g/dl (14.0-18.0); Mean Corpuscular HGB Conc 34.5 g/dl (31.0-36.0); Mean Corpuscular Hemoglobin 29.3 pg (27.0-33.0); Mean Corpuscular Volume 85.2 fL (80.0-98.0); Mean Platelet Volume 8.5 fL (9.4-12.4); Platelet Count 237 X10*3/uL (160-400); Red Blood Count 5.59 X10*6/uL (4.60-5.80); White Blood Count 8.3 X10*3/uL (4.8-10.8)
[2024-10-11 11:50] LABS: Alanine Aminotransferase 25 U/L (0-40); Albumin Level 4.1 g/dL (3.5-5.0); Alkaline Phosphatase 89 U/L (39-117); Anion Gap 12 (12-20); Aspartate Amino Transferase 27 U/L (5-37); Bilirubin Direct 0.3 mg/dL (0.0-0.5); Bilirubin Total 0.9 mg/dL (0.0-1.0); Blood Urea Nitrogen 27 mg/dL (9-16); Calcium 9.5 mg/dL (8.4-10.2); Carbon Dioxide 25 mmol/L (22-29); Chloride 106 mmol/L (96-108); Cholesterol 152 mg/dL (<200); Creatinine Clr Calc Pharmacy 103.3; Estimated Glomerular Filt Rate > 60; Glucose Fasting 102 mg/dL (60-99); HDL Cholesterol 32 mg/dL (>40); LDL Cholesterol Calculated 89 mg/dL (<100); Potassium 4.5 mmol/L (3.3-5.1); Sodium 138 mmol/L (135-145); Total Protein 7.8 g/dL (6.5-8.0); Triglycerides 156 mg/dL (<150)
[2024-10-11 11:56] LABS: MRSA Nasal PCR NEGATIVE (Negative); SA Nasal PCR NEGATIVE (Negative)
[2024-11-09] VITALS (28 sets, daily range): BP systolic 112–168; BP diastolic 51–86; PULSE 70–101; RESP 10–22; TEMP 36.1–37; O2SAT 93–100; BMI 30.6
--- NOTE | ~2024-11-09 | XR_ITS ---
EXAMINATION: XR PELVIS 1-2 VIEWS HISTORY: rt RENETTA COMPARISON: Comparison is made with the prior examination dated 11/04/2024. FINDINGS: A single AP view of the pelvis is submitted. There has been interval right total hip arthroplasty. The orthopedic elements are in anatomic alignment on this single AP view. A left hip prosthesis is again noted. XR/XR pelvis 1-2V IMPRESSION: That is post interval right total hip arthroplasty. Electronically signed by: Juan Alexis MD 11/09/2024 10:59 AM [facility]
[2024-11-09] MEDS: oxyCODONE HCl ER 10 MG TAB.ER.12H PO ×2 (06:32→19:09)
[2024-11-09] MEDS: Lactated Ringers 1,000 ML 100 ML IVCONT ×3 (06:53→23:47)
--- NOTE | 2024-11-09 07:27 | MHC.SHP ---
Pre-Procedural Eval Section A - 24 Hr Update-Section A only Date of Service: 11/09/24 The patient is an INPATIENT: No Changes since office visit: No Cold of Flu in the past 2 weeks, No New Medical Problems, No Changes in Medication and No Patient answered all questions The patient has been examined within 24 hours of the surgical procedure. The History & Physical has been completed within 30 days and I have reviewed it.: Yes Section B - Complete if H&P > 30 days Chief Complaint: Idiopathic aseptic necrosis of right femur Allergies: Allergies Allergy/AdvReac Type Severity Reaction Status Date / Time No Known Allergies Allergy Verified 11/09/24 06:26 Plan I have reviewed the history and physical and performed a pertinent physical examination on my patient. No changes have occurred unless specified. Time Spent With Patient Time: Total time managing care of this patient today ____ minutes.
[2024-11-09] MEDS: ceFAZolin Sodium/Dextrose,Iso 2 GM/50 ML PIGGYBACK IV ×2 (07:40→14:11)
[2024-11-09] MEDS: Acetaminophen 1,000 MG/100 ML PIGGYBACK 400 MG IV (08:13)
--- NOTE | 2024-11-09 09:14 | P.DS_ITS ---
DS: Providers Provider Date of Service: 11/11/24 <Mare Catherine PA-C - Last Filed: 11/11/24 09:10> Date of discharge: 11/11/24 <Mare Catherine PA-C - Last Filed: 11/11/24 09:10> Primary care physician: Garrett Simpson MD <Rosa King PA-C - Last Filed: 11/09/24 09:16> DS: Summary Hospital Course Hospital Course: The patient underwent a successful right total hip arthroplasty, they were transferred to PACU and then to the floor to recover. During their stay, their vitals were stable, afebrile at 98.0. Labs were unremarkable, H/H 13.2/38.2. POD 1 they were started on Aspirin 325mg po bid for DVT ppx, they also received Physical Therapy services twice a day. Prior to discharge, their dressing was clean dry and intact, and the plan was to be discharged home with VNA services. <Rosa King PA-C - Last Filed: 11/09/24 09:16> Time Attestation Discharge Coordination Time (in mins): 30 <Mare Catherine PA-C - Last Filed: 11/11/24 09:10> Quality: Safe Use of Opioids Does Pt have an Active Cancer Diagnosis on the Problem List?: No <Mare Catherine PA-C - Last Filed: 11/11/24 09:10> Quality: Stroke Does the patient have a stroke diagnosis?: No <MEREDITH Carson Last Filed: 11/11/24 09:10> Physical Exam 2 Vital Signs: Vital Signs: Last Vital Signs Temp 98.4 F 11/09/24 06:39 Pulse 82 11/09/24 06:39 Resp 16 11/09/24 06:39 BP 130/82 11/09/24 06:39 Pulse Ox 94 11/09/24 06:39 O2 Del Method Room Air 11/09/24 06:39 BMI result Body Mass Index 30.6 <MEREDITH Perea Last Filed: 11/09/24 09:16> Const: General: cooperative, healthy appearing and no acute distress <Rosa King PA-C - Last Filed: 11/09/24 09:16> Resp: Effort & Inspection: normal respiratory effort and able to speak in complete sentences <Rosa King PA-C - Last Filed: 11/09/24 09:16> Cardio: Rate: regular rate <Rosa Knig PA-C - Last Filed: 11/09/24 09:16> Peripheral pulses: Peripheral pulses 2+ throughout <Rosa King PA-C - Last Filed: 11/09/24 09:16> Skin: Lesions: no lesions <Rosa King PA-C - Last Filed: 11/09/24 09:16> Rashes: no rashes <Rosa King PA-C - Last Filed: 11/09/24 09:16> Extrem: Other: right hip dressing is c/d/i. Able to dorsi/plantar flex. Calf is supple and nontender. Sensation intact. Pedal pulse intact. <Rosa King PA-C - Last Filed: 11/09/24 09:16> DS: Data Data Completed and Pending Pending studies at discharge: Pending at discharge 11/09/24 08:16 Surgical [PTH] Routine <Rosa King PA-C - Last Filed: 11/09/24 09:16> Discharge Plan Discharge Patient Disposition: Home Health Service <Rosa King PA-C - Last Filed: 11/09/24 09:16> Referrals: Mare Catherine PA-C [Physician Behavioral Medical Director] - 11/25/24 12:45 pm <Rosa King PA-C - Last Filed: 11/09/24 09:16> Discharge Medications: New docusate sodium 100 mg Capsule 100 mg PO BID 14 Days Qty: 28 0RF celecoxib 200 mg Capsule 200 mg PO BID 30 Days Qty: 60 0RF aspirin 325 mg Tablet 325 mg PO BID 42 Days Qty: 84 0RF oxycodone 5 mg Tablet 5 mg PO Q4H PRN (Reason: Pain, Moderate(Pain Scale 4-6)) 7 Days Qty: 42 0RF Rx Instructions: Partial Fill upon patient request. acetaminophen 325 mg Tablet 650 mg PO Q6H PRN (Reason: Pain, Mild 1-3,Fever,Headache) 30 Days Qty: 240 0RF Continued enalapril maleate 10 mg tablet 10 mg PO DAILY Qty: 90 1RF hydrochlorothiazide 25 mg tablet 25 mg PO DAILY Qty: 90 1RF lansoprazole 30 mg capsule,delayed release(DR/EC) 30 mg PO DAILY Qty: 90 1RF diclofenac sodium [Arthritis Pain (diclofenac)] 1 % gel 2 g topical QID PRN (Reason: pain) Qty: 100 0RF tizanidine 4 mg capsule 4 mg PO BEDTIME Qty: 90 0RF (DME) walker Misc See Rx Instructions .MEDSUPPLY Qty: 1 0RF Rx Instructions: Folding Front wheeled walker (DME) Raised toilet seat See Rx Instructions .ROUTE .MEDSUPPLY Qty: 1 0RF Rx Instructions: duration - 99 days tamsulosin [Flomax] 0.4 mg capsule 0.4 mg PO BEDTIME 90 Days Qty: 90 1RF Discontinued ibuprofen [Advil] 200 mg Tablet 400 mg PO Q8H PRN (Reason: Pain) <MEREDITH Perea Last Filed: 11/09/24 09:16> Discharge Orders: Discharge Order (Routine); Ordered 11/11/24 Ordered By: Mare Catherine <Rosa King PA-C - Last Filed: 11/09/24 09:16> Diet: Advance to usual diet <Rosa King PA-C - Last Filed: 11/09/24 09:16> Advance to usual diet <MEREDITH Carson Last Filed: 11/11/24 09:10> Activity on Discharge: Use cane or walker <MEREDITH Perea Last Filed: 11/09/24 09:16> Use cane or walker <MEREDITH Carson Last Filed: 11/11/24 09:10> Activity Restrictions/Additional Instructions: Physical Therapy for total hip arthroplasty: posterior precautions, gait training, ROM, strength Limit stair climbing No showering, no tub bath-keep dressing clean, dry and intact No driving x6 weeks Continue anticoagulant x6 weeks Follow up with [facility] Orthopedics in 2 weeks <Rosa King PA-C - Last Filed: 11/09/24 09:16> Print Language: Vietnamese <Rosa King PA-C - Last Filed: 11/09/24 09:16>
--- NOTE | 2024-11-09 09:16 | P.F2F_ITS ---
Documented by User: Rosa King PA-C 11/09/24 09:16 Service Date Service Date: 11/09/24 Encounter Date of encounter: 11/10/24 Reasons for Services Signs and symptoms assessed: s/p RTHA Pt. is considered homebound due to recent surgery. Unable to drive, poor balance, poor gait mechanics. Reason for physical therapy: home safety and mobility, therapeutic exercises, restore joint function, gait/transfer training and ADL training Reason for occupational therapy: home safety and mobility, therapeutic exercises, restore joint function, gait/transfer training and ADL training Homebound: Leaving the home is medically contraindicated at this time without the asist of a device and/or another person due th the listed conditions above and below. Reason homebound: unsteady gait / fall risk, leg weakness, pain with ambulation, poor balance / fall risk and unable to drive Certification: Based on the above findings, I certify that this patient is confined to the home and needs intermittent halfway care, physical therapy and/or speech therapy, or continues to need occupational therapy. The patient is under my care, and I have initiated the establishment of the plan of care. The patient will be followed by a physician who will periodically review the plan of care. Time Spent With Patient Time: Total time managing care of this patient today ____ minutes. Documented by User: Mare Catherine PA-C 11/11/24 09:11 Service Date Service Date: 11/11/24 Encounter Date of encounter: 11/11/24
--- NOTE | 2024-11-09 09:48 | P.BOP_ITS ---
Brief Operative Note Date of Service: 11/09/24 Pre-op diagnosis: Right hip OA Post-op diagnosis: same Procedure: Right RENETTA Implants: [place] Trident 2 58/ 4- 6.5mm acetabular screws/ Accolade 2 #6 132 / +0 36 ceramic Surgeon: Noam Sneed MD Anesthesia: GETA and local Was an Pulmonary Specialist used for this Procedure?: Yes Pulmonary Specialist: Mare Catherine Estimated blood loss (mL): 200 IV fluids (mL): 1,000 Pathology: other Condition: stable Disposition: PACU
--- NOTE | 2024-11-09 09:53 | W.PM.OPN ---
Operative Note Operative Note Date of Service: 11/09/24 Narrative: Date of Service: 11/09/24 Pre-op diagnosis: Right hip OA Post-op diagnosis: same Procedure: Right RENETTA Implants: [place] Trident 2 58/ 4- 6.5mm acetabular screws/ Accolade 2 #6 132 / +0 36 ceramic Surgeon: Noam Sneed MD Anesthesia: GETA and local Was an Nougat Cutter Machine used for this Procedure?: Yes Nougat Cutter Machine: Mare Catherine Estimated blood loss (mL): 200 IV fluids (mL): 1,000 Pathology: other Condition: stable Disposition: PACU Procedure in detail: Patient was brought into the operating room and placed in the right lateral decubitus position. All bony prominences were well padded and the limb was prepped and draped in standard sterile fashion. A time-out was called to identify proper site procedure proper surgeon IV antibiotics and 1 g of tranexamic acid were administered. I began by making a curvilinear incision over the posterolateral aspect of the greater trochanter. Dissection was taken down to the tensor fascia which was incised in line with the incision and a Charnley retractor was placed. Cautery was used to maintain hemostasis. The hip was internally rotated and the external rotators were identified. The vessels were cauterized and a full-thickness capsular/external rotator layer was developed starting just proximal to the piriformis. This layer was tagged and a dull Hohmann retractor was placed underneath the neck in the hip was dislocated. A neck cut was made 1 cm proximal to the lesser trochanter and the head and neck were removed . The head was deformed and eburnated. I started with a 44 reamer and medialized to the inner table. I sequentially reamed up to a size 58 and impacted a 58mm cup at 45 degrees of inclination and 25 degrees of version. There was superior wear with proximal migration. I had as good a fit as possible given the loss of a superior rim and therefore placed 4 acetabular screws. Standard AO technique was used to place the screws in the superior safe zone. I then placed a 20 deg posterior lipped liner and turned my attention to the femur. I identified the piriformis insertion and used this as a starting point for my lingie cutter. The medius tendon was protected with a Hibs retractor. A Charnley awl was inserted in the canal and a curved curette used to remove the lateral bone. I irrigated copiously. I then sequentially broached in the patient's natural version to a size 6 and placed my trial implants. I used a #6/132/+0 based on my pre-operative template. I removed all instrumentation and copiously irrigated. I placed my final femoral implant and again took the hip through range of motion and was satisfied with the stability and length. The final +0 implant was impacted in place and the hip reduced. I then irrigated copiously and placed 1 g of local tranexamic acid. I performed a capsular closure with 2.0 fiberwire, Ruba's fascia with 0 Vicryl, subcuticular with 2-0 Vicryl and the skin with keisha. Patient was placed into a sterile dressing. Patient was extubated brought to the recovery room in stable condition. There were no known complications.
[2024-11-09] MEDS: HYDROmorphone HCl 0.5 MG/0.5 ML SYRINGE 0.25 MG IVPUSH ×5 (10:13→15:38)
[2024-11-09] MEDS: fentaNYL citrate/PF 100 MCG/2 ML VIAL 50 MCG IVPUSH (10:43)
[2024-11-09] MEDS: ondansetron HCL 4 MG/2 ML VIAL IVPUSH (11:32)
--- NOTE | 2024-11-09 12:48 | P.CONIM_ITS ---
History of Present Illness Data of Consult Service Date: 11/09/24 Primary Care Provider: Garrett Simpson MD HPI Reason for consult: MEdical consult A 63 years old male with PMH of KRANTHI, BPH, GERD, HTN among others who presented to the hospital for right hip OA elective surgery. The patient reports BP fairly controlled at home. has been losing weight and uses Tamsulosin for BPH. Hospitalist team asked to evaluate for medical problems. Review of Systems 2 Review of Systems: Yes all other systems are reviewed and are negative FORMERLY [facility] Medical History [place] (hard of hearing) Balance problem KRANTHI (obstructive sleep apnea) Ambulates with cane Low back pain Slow to wake up after anesthesia Elevated PSA Osteoarthritis of right knee Osteoarthritis of right hip GERD (gastroesophageal reflux disease) Essential (primary) hypertension Family History Father No problems noted. Mother No problems noted. Brother No problems noted. Sister No problems noted. Surgical History History of tonsillectomy and adenoidectomy History of hip replacement Social History Household Members: None Housing: House Are you a primary healthcare project manager to a significant other at home: No Do you presently have visiting nurse or other home services: No Alcohol intake: never Comment: tolerable Patient Tobacco Use Status: Never used Tobacco e-Cigarette/Vaping Use: Never Used Second Hand Smoke Exposure: No Use of substances other than those prescribed or required for medical reasons: No Have you been hit, kicked, punched, or otherwise hurt by someone within the past year? If so, by whom?: No Do you feel safe in your current relationship?: No Current Relationship Is there a partner from a previous relationship who is making you feel unsafe now?: No Are you made to feel afraid or neglected: No Are you DNR?: No Advance Directives: No (will bring dos) Advance Directives Information Provided: Yes Advance Directives on File: No Do you have a plan to hurt others: No Plan Recently lost weight without trying: No Eating poorly because of decreased appetite: No Poor oral hygiene: No service: No Current occupational status: employed Current occupational exposures/hazards: No Cognitive needs: No Hearing needs: No Vision needs: Yes (glasses) Meds Allergies Allergy/AdvReac Type Severity Reaction Status Date / Time No Known Allergies Allergy Verified 11/09/24 06:26 Active Medications: Current Medications Acetaminophen (Acetaminophen 325 Mg Tablet) 650 mg PO Q6H PRN PRN Reason: Pain, Mild 1-3,fever,headache Aspirin (Aspirin 325 Mg Tablet) 325 mg PO BID PENDING SALE TO [facility] Celecoxib (Celecoxib 200 Mg Capsule) 200 mg PO BID PENDING SALE TO [facility] Docusate Sodium (Docusate Sodium 100 Mg Capsule) 100 mg PO BID PENDING SALE TO [facility] Enalapril Maleate (Enalapril Maleate 10 Mg Tablet) 10 mg PO DAILY PENDING SALE TO [facility]; Protocol Fentanyl (Fentanyl Citrate/Pf 100 Mcg/2 Ml Vial) 50 mcg IVPUSH Q5M PRN PRN Reason: Pain, Moderate to Severe (Pain Scale 4-10) Stop: 11/09/24 16:42 Last Admin: 11/09/24 10:43 Dose: 50 mcg Hydromorphone HCl (Hydromorphone Hcl 0.5 Mg/0.5 Ml Syringe) 0.25 mg IVPUSH Q4H PRN; Protocol PRN Reason: Pain, Severe (Pain Scale 7-10) Lactated Ringer's (Lr) 1,000 mls @ 100 mls/hr IVCONT .Q10H PENDING SALE TO [facility] Stop: 11/10/24 08:00 Cefazolin Sodium/Dextrose (Ancef) 2 gm in 50 mls @ 100 mls/hr IV POSTOP ONE Stop: 11/09/24 14:29 Naloxone HCl (Naloxone Hcl 0.4 Mg/Ml Vial) 0.04 mg IVPUSH Q5M PRN PRN Reason: Excessive sedation or RR < 8 Omeprazole (Omeprazole 20 Mg Capsule.Dr) 20 mg PO DAILY@0630 PENDING SALE TO [facility] Ondansetron HCl (Ondansetron Hcl 4 Mg/2 Ml Vial) 4 mg IVPUSH Q8H PRN PRN Reason: Nausea and Vomiting Oxycodone HCl (Oxycodone Hcl Immed Release 5 Mg Tablet) 5 mg PO Q4H PRN PRN Reason: Pain, Moderate(Pain Scale 4-6) Oxycodone HCl (Oxycodone Hcl Er 10 Mg Tab.Er.12h) 10 mg PO BID ANTON Sodium Chloride (0.9 % Sodium Chloride Flush 3 Ml Syringe) 3 ml IVFLUSH QSHIFT ANTON Tizanidine HCl (Tizanidine Hcl 4 Mg Tablet) 4 mg PO BEDTIME ANTON Home Medications ?Medication ?Instructions ?Recorded ?Confirmed ?Last Taken ?Type ibuprofen 200 mg tablet (Advil) 400 mg PO Q8H PRN Pain 10/08/24 11/04/24 11/02/24 History Physical Exam 2 Vital Signs and Narrative: Vital Signs: Last Vital Signs Temp 96.9 F 11/09/24 12:40 Pulse 81 11/09/24 12:40 Resp 16 11/09/24 12:40 BP 168/78 H 11/09/24 12:40 Pulse Ox 100 11/09/24 12:40 O2 Del Method Nasal Cannula 11/09/24 12:40 O2 Flow Rate 3 11/09/24 12:40 BMI result Body Mass Index 30.6 Const: Other: Constitutional : interactive, not in distress Cardiovascular : no JVP, no lower extremity edema Respiratory : bilateral chest movement, not in resp distress Gastrointestinal: soft, lax, Non tender Skin : Warm, Dry Extremities: Right hip in dressing Neurological : Alert & oriented , No focal deficit Results Labs 10/11/24 10:27 10/11/24 10:27 Imaging Radiologist's Impressions: Impressions Pelvis X-Ray 11/09/24 10:40 IMPRESSION: That is post interval right total hip arthroplasty. Electronically signed by: Juan Alexis MD 11/09/2024 10:59 AM [facility] Assessment and Plan (1) KRANTHI (obstructive sleep apnea): Status: Acute (2) Elevated PSA: Status: Acute Plan A 63 years old male with PMH of KRANTHI, BPH, GERD, HTN among others who presented to the hospital for right hip OA elective surgery. HTN continue Enlapril restart HVT GERD Omeprazole Right hip arthroplasty PT eval orthopedic following KRANTHI not using CPAP. monitor Thank you for the consult. please reach out to hospitalist team for any further questions.
--- NOTE | 2024-11-09 13:22 | PHA.MEDREC ---
Addendum entered by Muriel Rizo RPh 11/09/24 14:32: Med rec was reviewed by [facility]. Original Note: Pharmacy Consult ? Medication Reconciliation Pharmacy has reviewed the medication reconciliation done by nursing. Spoke to patient to confirm med list. Patient was able to tell me what medications he takes.
[2024-11-09] MEDS: Promethazine HCL 25 MG TABLET PO (13:40)
[2024-11-09] MEDS: Celecoxib 200 MG CAPSULE PO (19:09)
[2024-11-09] MEDS: TiZANidine HCL 4 MG TABLET PO (19:09)
[2024-11-09] MEDS: Docusate Sodium 100 MG CAPSULE PO (19:09)
[2024-11-09] MEDS: oxyCODONE HCl Immed Release 5 MG TABLET PO (19:10)
[2024-11-10] VITALS (9 sets, daily range): BP systolic 107–147; BP diastolic 54–72; PULSE 84–98; RESP 16–18; TEMP 36.6–37.1; O2SAT 93–97
[2024-11-10] MEDS: oxyCODONE HCl Immed Release 5 MG TABLET PO ×5 (01:38→18:35)
[2024-11-10] MEDS: Omeprazole 20 MG CAPSULE.DR PO (05:27)
[2024-11-10 06:53] LABS: MANUAL DIFF FLAG NO
[2024-11-10] MEDS: oxyCODONE HCl ER 10 MG TAB.ER.12H PO ×2 (07:01→19:24)
[2024-11-10] MEDS: Acetaminophen 325 MG TABLET 650 MG PO (07:01)
[2024-11-10 07:02] LABS: Basophils Percent Auto 0.1 % (0-2); Eosinophils Percent Auto 0.2 % (0-4); Hemoglobin 13.7 g/dl (14.0-18.0); Imm Gran Abs Auto 0.05 X10*3/uL (0.00-0.03); Imm Gran Pct Auto 0.5 % (0.0-0.4); Lymphocytes Absolute Auto 1.3 X10*3/uL (1.2-4.9); Lymphocytes Percent Auto 11.5 % (20-40); Mean Corpuscular HGB Conc 34.3 g/dl (31.0-36.0); Mean Corpuscular Hemoglobin 29.6 pg (27.0-33.0); Mean Corpuscular Volume 86.4 fL (80.0-98.0); Monocytes Absolute Auto 1.4 X10*3/uL (0.1-1.2); Monocytes Percent Auto 12.8 % (2-11); Neutrophils Absolute Auto 8.3 x10*3/uL (2.0-8.3); Neutrophils Percent Auto 74.9 % (45-73); Platelet Count 230 X10*3/uL (160-400); Red Blood Count 4.63 X10*6/uL (4.60-5.80); Red Cell Distribution Width 14.2 % (11.0-16.0); White Blood Count 11.1 X10*3/uL (4.8-10.8)
[2024-11-10 07:15] LABS: Anion Gap 11 (12-20); Blood Urea Nitrogen 23 mg/dL (9-16); Calcium 9.1 mg/dL (8.4-10.2); Carbon Dioxide 24 mmol/L (22-29); Chloride 107 mmol/L (96-108); Creatinine Clr Calc Pharmacy 107.5; Estimated Glomerular Filt Rate > 60; Glucose Fasting 110 mg/dL (60-99); Potassium 4.1 mmol/L (3.3-5.1); Sodium 138 mmol/L (135-145)
--- NOTE | 2024-11-10 07:32 | PM.PNORT ---
Subjective Subjective Date of Service: 11/10/24 Interval history: POD1 s/p RTHA Patient is resting in bed comfortably No overnight events Pain is managed No additional complaints Physical Exam Vital Signs: Vital Signs: Last Vital Signs Temp 98 F 11/10/24 06:58 Pulse 85 11/10/24 06:58 Resp 16 11/10/24 06:58 BP 107/58 L 11/10/24 06:58 Pulse Ox 97 11/10/24 06:58 O2 Del Method Room Air 11/10/24 06:58 O2 Flow Rate 2 11/10/24 04:00 BMI result Body Mass Index 30.6 Const: General: cooperative, healthy appearing and no acute distress Resp: Effort & Inspection: normal respiratory effort and able to speak in complete sentences Cardio: Rate: regular rate Peripheral pulses: Peripheral pulses 2+ throughout GI: Palpation (GI): Soft to palpation Skin: Lesions: no lesions Rashes: no rashes Extrem: Other: right hip dressing is c/d/i. Able to dorsi/plantar flex. Calf is supple and nontender. Sensation intact. Pedal pulse intact. Procedures Date of Service Date of Service: 11/10/24 Progress Note: A&P Assessment and plan (1) S/P total right hip arthroplasty: Status: Acute Plan Continue pain mgmnt Begin ASA for dvt ppx begin PT/OT for RTHA -WBAT, posterior precautions Dispo planning-Pending PT eval, pain mgmnt - Patient has 8-10 stairs to navigate in his house Time Spent With Patient Time: Total time managing care of this patient today ____ minutes. Quality Stroke Does the patient have a stroke diagnosis?: No VTE Prior VTE?: No VTE Risk Level:: Medical - moderate - high VTE Device Contraindication: N/A - Device Ordered VTE Drug Contraindication: N/A - Med Ordered
--- NOTE | 2024-11-10 08:45 | HO.POSTANES ---
Post Anesthesia Evaluation Post Anesthesia Evaluation Date of Service: 11/10/24 Vital Signs: Vital Signs Temp Pulse Resp BP Pulse Ox O2 Del Method O2 Flow Rate 11/10/24 08:13 85 107/58 L 97 11/10/24 06:58 98 F 85 16 107/58 L 97 Room Air 11/10/24 04:00 97.8 F 84 18 147/72 H 97 Nasal Cannula 2 11/09/24 23:48 96.9 F 89 18 114/71 96 Nasal Cannula 2 Anesthesia: General Mental Status: Awake Pain Control: Satisfactory Nausea/Vomiting: None and Mild Hydration: Adequate Anesthesia-Related Issues: No Anes. Related Issues
[2024-11-10] MEDS: Aspirin 325 MG TABLET PO ×2 (09:13→19:23)
[2024-11-10] MEDS: Celecoxib 200 MG CAPSULE PO ×2 (09:14→19:24)
[2024-11-10] MEDS: Enalapril Maleate 10 MG TABLET PO (09:14)
[2024-11-10] MEDS: Docusate Sodium 100 MG CAPSULE PO ×2 (09:15→19:24)
[2024-11-10] MEDS: hydroCHLOROthiazide 25 MG TABLET PO (09:15)
[2024-11-10] MEDS: 0.9 % Sodium Chloride Flush 3 ML SYRINGE IVFLUSH ×3 (10:23→19:26)
[2024-11-10] MEDS: Lactated Ringers 1,000 ML 100 ML IVCONT (10:23)
--- NOTE | 2024-11-10 11:08 | MHC.CM.PN ---
Patient s/p surgical intervention DX Idiopathic aseptic necrosis r femur He lives by himself. He is independent with all functional mobility @ baseline. [facility] is homecare preference, referred. He will stay w sis @ [place]. [facility] aware: SOC [address] [place] [address] POLLY Martell. DP [facility] Sis will transport @ [place].
[2024-11-10] MEDS: TiZANidine HCL 4 MG TABLET PO (19:24)
[2024-11-11] MEDS: oxyCODONE HCl Immed Release 5 MG TABLET PO ×3 (02:44→12:28)
[2024-11-11 03:32] VITALS: BP 101/62; PULSE 78; RESP 16; TEMP 36; O2SAT 97
[2024-11-11] MEDS: Omeprazole 20 MG CAPSULE.DR PO (05:30)
[2024-11-11 06:18] LABS: MANUAL DIFF FLAG NO
[2024-11-11 06:24] LABS: Basophils Percent Auto 0.3 % (0-2); Eosinophils Absolute Auto 0.1 X10*3/uL (0.0-0.4); Eosinophils Percent Auto 0.8 % (0-4); Hematocrit 38.2 % (42.0-52.0); Hemoglobin 13.2 g/dl (14.0-18.0); Imm Gran Abs Auto 0.03 X10*3/uL (0.00-0.03); Imm Gran Pct Auto 0.3 % (0.0-0.4); Lymphocytes Absolute Auto 1.5 X10*3/uL (1.2-4.9); Lymphocytes Percent Auto 14.5 % (20-40); Mean Corpuscular HGB Conc 34.6 g/dl (31.0-36.0); Mean Corpuscular Hemoglobin 29.8 pg (27.0-33.0); Mean Corpuscular Volume 86.2 fL (80.0-98.0); Mean Platelet Volume 8.7 fL (9.4-12.4); Monocytes Absolute Auto 1.3 X10*3/uL (0.1-1.2); Monocytes Percent Auto 12.6 % (2-11); Neutrophils Absolute Auto 7.3 x10*3/uL (2.0-8.3); Neutrophils Percent Auto 71.5 % (45-73); Platelet Count 206 X10*3/uL (160-400); Red Blood Count 4.43 X10*6/uL (4.60-5.80); Red Cell Distribution Width 14.1 % (11.0-16.0); White Blood Count 10.2 X10*3/uL (4.8-10.8)
[2024-11-11 06:40] LABS: Anion Gap 11 (12-20); Blood Urea Nitrogen 25 mg/dL (9-16); Carbon Dioxide 24 mmol/L (22-29); Chloride 106 mmol/L (96-108); Creatinine Clr Calc Pharmacy 101.3; Estimated Glomerular Filt Rate > 60; Glucose Fasting 120 mg/dL (60-99); Sodium 137 mmol/L (135-145)
[2024-11-11 07:23] VITALS: BP 101/62; PULSE 78; O2SAT 97
[2024-11-11 07:35] VITALS: BP 128/68; PULSE 87; RESP 17; TEMP 36.7; O2SAT 98
[2024-11-11] MEDS: hydroCHLOROthiazide 25 MG TABLET PO (08:07)
[2024-11-11] MEDS: Docusate Sodium 100 MG CAPSULE PO (08:07)
[2024-11-11] MEDS: Enalapril Maleate 10 MG TABLET PO (08:07)
[2024-11-11] MEDS: Aspirin 325 MG TABLET PO (08:07)
[2024-11-11] MEDS: Celecoxib 200 MG CAPSULE PO (08:07)
[2024-11-11] MEDS: oxyCODONE HCl ER 10 MG TAB.ER.12H PO (08:08)
[2024-11-11] MEDS: 0.9 % Sodium Chloride Flush 3 ML SYRINGE IVFLUSH (08:09)
--- NOTE | 2024-11-11 09:45 | MHC.CM.PN ---
DP: PT HAS BEEN MEDICALLY CLEARED FOR DC HOME (TO SISTER'S HOME) WITH NEW [facility] FOR P.T./O.T. SERVICES. [facility] NOTIFIED OF TODAY'S DC. PT'S SISTER WILL TRANSPORT HOME AT 2 PM.
[2024-11-11 14:15] VITALS: BP 112/57; PULSE 88; RESP 16; TEMP 36.7; O2SAT 97
== END 2024-11-11 14:49 | disposition home health service (06) ==
LOC: HO.SSS 09:14 → HO.S3 10:57
PROVIDERS: Nurse Practitioner; Physician Assistant; PCP Internal Medicine; Visit Provider Orthopaedic Surgery
PROC: (CPT 27130; principal; 2024-11-09 07:30)
DX: M87.051 Idiopathic aseptic necrosis of right femur (principal); M16.11 Unilateral primary osteoarthritis, right hip; M25.551 Pain in right hip; R26.2 Difficulty in walking, not elsewhere classified; M17.11 Unilateral primary osteoarthritis, right knee; M54.50 Low back pain, unspecified; I10 Essential (primary) hypertension; Z96.642 Presence of left artificial hip joint; K21.9 Gastro-esophageal reflux disease without esophagitis; R97.20 Elevated prostate specific antigen [PSA]; E66.9 Obesity, unspecified; Z68.33 Body mass index [BMI] 33.0-33.9, adult; G47.33 Obstructive sleep apnea (adult) (pediatric); R06.02 Shortness of breath; Z79.1 Long term (current) use of non-steroidal anti-inflammatories (NSAID); Z79.899 Other long term (current) drug therapy; Z99.89 Dependence on other enabling machines and devices
CPT/HCPCS: 27130; 36415; 72170; 80048; 80061; 80076; 84443; 85025; 85027; 86850; 86900; 86901; 87640; 87641; 88304; 88311; 93005; 97110; 97116; 97162; 97166; C1713; C1776; J0131; J0330; J0690; J1100; J1171; J2371; J2405; J2704; J2795; J3010; J7120

== ENCOUNTER → 2024-11-09 05:56 | Outpatient (BNV) | payer OTHER, SELFPAY | PROVIDERS: PCP Internal Medicine; Visit Provider Orthopaedic Surgery | DX: Z96.641 Presence of right artificial hip joint (principal) | CPT/HCPCS: 27130; 99024 ==

== ENCOUNTER → 2024-11-09 05:56 | Outpatient (BNV) | payer OTHER, SELFPAY | PROVIDERS: PCP Internal Medicine; Visit Provider Student in an Organized Health Care Education/Training Program | DX: G47.33 Obstructive sleep apnea (adult) (pediatric) (principal); R97.20 Elevated prostate specific antigen [PSA] | CPT/HCPCS: 99221 ==

== ENCOUNTER → 2024-11-09 09:58 | Outpatient (BNV) | payer OTHER, SELFPAY | PROVIDERS: PCP Internal Medicine; Visit Provider Radiology Diagnostic Radiology | DX: Z96.641 Presence of right artificial hip joint (principal) | CPT/HCPCS: 72170 ==

== ENCOUNTER → 2024-11-19 23:59 | Outpatient (BNV) | payer OTHER, SELFPAY | PROVIDERS: PCP Internal Medicine; Visit Provider Internal Medicine | DX: M17.11 Unilateral primary osteoarthritis, right knee (principal); Z47.1 Aftercare following joint replacement surgery | CPT/HCPCS: G0180 ==

== ENCOUNTER 2024-11-25 12:29 | Outpatient (AMB) | payer OTHER, SELFPAY ==
--- NOTE | 2024-11-25 12:52 | MHC.OFFVIS ---
Intake Visit Reasons: 2WK PO: R RENETTA w/NE 11/09/24 Intake Note: Demetrius is a 64 year old male who presents today for a post operative RT RENETTA, DOS 11/09/[address] Sneed. Patient reports he is dong well, he has been taking walking 4 x a day as well as exercises. He has been using a cane with ambulation. Denies any pain. He d/c oxycodone about 5 days after surgery due to having hives. Allergies celecoxib [From Celebrex] Allergy (Verified 11/25/24 12:57) Hives Medication List - Last Reconciled 11/25/24 by Mare Catherine PA-C acetaminophen 650 mg (2 x 325 mg) PO Q6H PRN 30 days aspirin 325 mg PO BID 42 days diclofenac sodium 1% (Arthritis Pain (diclofenac)) 2 grams topical QID PRN docusate sodium 100 mg PO BID 14 days enalapril maleate 10 mg PO DAILY hydrochlorothiazide 25 mg PO DAILY lansoprazole 30 mg PO DAILY [Raised toilet seat duration - 99 days] tamsulosin (Flomax) 0.4 mg PO BEDTIME 90 days tizanidine 4 mg PO BEDTIME walker Folding Front wheeled walker HPI HPI 2WK PO: R RENETTA w/NE 11/09/24: Details: 64-year-old gentleman returns to the office today status post right total hip arthroplasty on 11/09/[address] Sneed. He comes in today ambulating with a cane. He has been discharged from home [facility] services and begins outpatient physical therapy tomorrow. He has discontinued all opiate medication in is doing well. FORMERLY [facility] Medical History [place] (hard of hearing) Balance problem KRANTHI (obstructive sleep apnea) Ambulates with cane Low back pain Slow to wake up after anesthesia Elevated PSA Osteoarthritis of right knee Osteoarthritis of right hip GERD (gastroesophageal reflux disease) Essential (primary) hypertension Surgical History History of tonsillectomy and adenoidectomy History of hip replacement Family History Father No problems noted. Mother No problems noted. Brother No problems noted. Sister No problems noted. Social History Household Members: None Housing: House Are you a primary care coordinator to a significant other at home: No Do you presently have visiting nurse or other home services: No 75 years or older and lives alone: No Alcohol intake: never Comment: tolerable Patient Tobacco Use Status: Never used Tobacco e-Cigarette/Vaping Use: Never Used Second Hand Smoke Exposure: No service: No Current occupational status: employed Current occupational exposures/hazards: No Cognitive needs: No Hearing needs: No Vision needs: Yes (glasses) Review of Systems Const All systems reviewed & are unremarkable except as noted in HPI and below Physical Exam Extrem Other: Right hip incision clean dry and intact. No erythema or drainage. He has good hip flexion and range of motion without pain. Calf supple nontender neurovascularly intact. Assessment & Plan Assessment & Plan (1) S/P total right hip arthroplasty: Code(s): Z96.641 - Presence of right artificial hip joint Category: Surgical Plan: [place] removed today Steri-Strips applied. He will continue working with physical therapy and transition to outpatient therapy tomorrow. No driving for another 4 weeks. Antibiotics for any dental visits however understands he should not have any cleanings for 3 months postop. He will see us back in [address] Sneed with x-rays, sooner if needed. Coding Level of Care Code Global (34730) Diagnoses S/P total right hip arthroplasty Z96.641
== END 2024-11-25 13:18 | disposition home or self-care (01) ==
PROVIDERS: PCP Internal Medicine; Visit Provider Physician Assistant
DX: Z96.641 Presence of right artificial hip joint (principal)
CPT/HCPCS: 99024

== ENCOUNTER → 2024-11-25 12:29 | Outpatient (BNVA) | payer OTHER, SELFPAY | PROVIDERS: PCP Internal Medicine; Visit Provider Physician Assistant ==

== ENCOUNTER 2024-12-16 11:22 | Outpatient (REF) | payer OTHER, SELFPAY ==
--- NOTE | ~2024-12-16 | XR_ITS ---
EXAMINATION: XR PELVIS 1-2 VIEWS HISTORY: M25.559 - Pain in unspecified hip COMPARISON: Comparison is made with the prior examination dated 11/09/2024. FINDINGS: A single AP view of the pelvis is submitted. The patient is status post bilateral total hip arthroplasty. The orthopedic elements are in anatomic alignment. There is no radiographic evidence of loosening. There is no fracture or dislocation. The soft tissues are unremarkable. XR/XR pelvis 1-2V IMPRESSION: Status post bilateral total hip arthroplasty. Electronically signed by: Juan Alexis MD 12/17/2024 08:11 AM EDT
== END 2024-12-16 11:23 | disposition home or self-care (01) ==
LOC: HO.HOSX 11:22
PROVIDERS: Visit Provider Orthopaedic Surgery
DX: Z47.1 Aftercare following joint replacement surgery (principal); Z96.641 Presence of right artificial hip joint
CPT/HCPCS: 72170

== ENCOUNTER 2024-12-16 12:53 | Outpatient (AMB) | payer OTHER, SELFPAY ==
--- NOTE | 2024-12-16 13:07 | A.OFFVIS_ITS ---
Intake Visit Reasons: 6WK PO: R RENETTA w/NE 11/09/24 Intake Note: Demetrius is a 64 year old male who presents today for a post operative visit about 6 weeks s/p RT RENETTA, DOS 11/09/[address] Sneed. Patient reports that he is doing fantastic, he is working with physical therapy which is going very well. Allergies celecoxib [From Celebrex] Allergy (Verified 11/25/24 12:57) Hives HPI HPI 6WK PO: R RENETTA w/NE 11/09/24: Details: Demetrius is a 64 year old male who presents today for a post operative visit about 6 weeks s/p RT RENETTA, DOS 11/09/[address] Sneed. Patient reports that he is doing fantastic, he is working with physical therapy which is going very well. FORMERLY [facility] Medical History [place] (hard of hearing) Balance problem KRANTHI (obstructive sleep apnea) Ambulates with cane Low back pain Slow to wake up after anesthesia Elevated PSA Osteoarthritis of right knee Osteoarthritis of right hip GERD (gastroesophageal reflux disease) Essential (primary) hypertension Surgical History History of tonsillectomy and adenoidectomy History of hip replacement Family History Father No problems noted. Mother No problems noted. Brother No problems noted. Sister No problems noted. Social History Household Members: None Housing: House Are you a primary assisted living care manager to a significant other at home: No Do you presently have visiting nurse or other home services: No 75 years or older and lives alone: No Alcohol intake: never Comment: tolerable Patient Tobacco Use Status: Never used Tobacco e-Cigarette/Vaping Use: Never Used Second Hand Smoke Exposure: No service: No Current occupational status: employed Current occupational exposures/hazards: No Cognitive needs: No Hearing needs: No Vision needs: Yes (glasses) Physical Exam Extrem Other: inc c/d/i no pain with hip ROM walking comfortablyu with + Trendelenberg gait Results Reviewed Results Reviewed: I personally reviewed relevant radiographs. Right RENETTA in expected post operative position with no hardware complications or evidence of loosening Assessment & Plan Assessment & Plan (1) S/P total right hip arthroplasty: Code(s): Z96.641 - Presence of right artificial hip joint Category: Surgical Plan: Doing very well s/p right RENETTA. January d/c ASA. Continue gait training. f/u 6 weeks Orders: Orders XR pelvis 1-2V 12/16/24 M25.559 - Pain in unspecified hip Coding Level of Care Code Global (39196) Diagnoses S/P total right hip arthroplasty Z96.641
== END 2024-12-16 13:21 | disposition home or self-care (01) ==
LOC: HO.HOS 12:54
PROVIDERS: PCP Internal Medicine; Visit Provider Orthopaedic Surgery
DX: Z96.641 Presence of right artificial hip joint (principal)
CPT/HCPCS: 99024

== ENCOUNTER → 2024-12-16 13:00 | Outpatient (BNV) | payer OTHER, SELFPAY | PROVIDERS: Visit Provider Radiology Diagnostic Radiology | DX: Z96.643 Presence of artificial hip joint, bilateral (principal) | CPT/HCPCS: 72170 ==

== ENCOUNTER 2025-01-19 11:00 | Outpatient (RCR) | payer OTHER, SELFPAY ==
[2024-11-26 09:05] VITALS: BP 95/51; PULSE 79
--- NOTE | 2024-11-26 09:54 | MHC.PT.EP ---
[facility] [place] Office [place] Office [place] Office [address] [phone] F: [phone] F: [phone] F: [phone] F: [phone] Physical Therapy Plan of Care Date of Evaluation: 11/26/24 Date of Surgery: 11/09/24 Diagnosis: Presence of R artificial hip joint Assessment: Demetrius is a 64 year old male who is referred to PT for presence of R artificial hip joint . He is currently 2.5 weeks post op. He had 2 sessions of home PT after d/c from hospital. On PT examination today he presented with TTP over suture site on R hip,4/10 pain intermittent pain in R hip which is present with sit to stand, prolonged sitting, standing and walking, decreased R hip ROM, decreased flexibility in R hip, decreased strength of R LE, altered posture, balance and gait. He lives alone and is independent with all ADLS but modified them by taking frequent seated rest breaks. He would benefit from skilled PT to address the aforementioned impairments and improve tolerance to functional activities. Frequency and Duration: The patient will be seen 2/week for 6 weeks Short Term Goals: 1. Pt will have 50% decrease in pain which will enable him to stand, walk and sit without pain in 2 weeks 2. Pt will be able to move R hip through all planes of motion which will enable him to perform sit to stand without pain in 3 weeks. Group Leader Goals: 1. Pt will demonstrate an increase in muscle strength by 1 grade which will enable to walk, and negotiate stairs without AD in 5 weeks 2. Pt will be independent with all HEP for symptom management and maintenance following d/c in 6 weeks Treatment Plan: Modalities to reduce pain, spasms and effusion. Manual therapy to restore motion and function. Therapeutic exercise to improve strength and flexibility. Neuromuscular re-education for posture and balance. Therapeutic activities to return to functional activities of daily living. Electronically signed by: Trupti Larkin PT DPT Please sign and return to therapist. Thank you for your referral.
--- NOTE | 2025-02-17 08:35 | MHC.PT.DC ---
[facility] [place] Office [place] Office [place] [facility] [address] Alba Huber [address] [phone] F: [phone] F: [phone] F: [phone] F: [phone] Physical Therapy Discharge Report Diagnosis: Presence of R artificial hip joint Date of Surgery: 11/09/24 Date of Evaluation: 11/26/24 Date of Discharge: 02/17/25 Treatments to Date: 12 Cancellations to Date: 0 No Shows to Date: 0 Discharge Status: Achieved Goals Improved Function Independent with HEP Discharge Summary: Demetrius attended 12 PT visits and has achieved all goals set for him. He is independent with all HEPs. He is therefore being d/c from PT. Electronically signed by: Trupti Larkin, PT DPT Please sign and return to therapist. Thank you for your referral.
== END 2025-02-17 08:35 | disposition home or self-care (01) ==
LOC: HO.PT 11:00
PROVIDERS: PCP Internal Medicine; Visit Provider Physician Assistant
DX: Z47.1 Aftercare following joint replacement surgery (principal); Z96.641 Presence of right artificial hip joint
CPT/HCPCS: 97110; 97161; 97530

== ENCOUNTER 2025-02-02 09:52 | Outpatient (AMB) | payer OTHER, SELFPAY ==
--- NOTE | 2025-02-02 09:58 | MHC.OFFVIS ---
Intake Visit Reasons: PO: R RENETTA w/NE 11/09/24 Intake Note: Demetrius is a 64 year old male who presents today for a post operative visit about 6 weeks s/p RT RENETTA, DOS 11/09/[address] Sneed. At patient last visit he was instructed to continue with gait training and follow up in 6 weeks. Patient reports he is doing really well, stating he has no pain or any concerns today. Allergies celecoxib [From Celebrex] Allergy (Verified 02/02/25 10:03) Hives HPI HPI PO: R RENETTA w/NE 11/09/24: Details: 64-year-old gentleman 3 months status post right total hip arthroplasty with Dr. Sneed. Overall he is doing quite well. He has his last physical therapy appointment this week and continues working on gait training. He continues to perform daily activities without discomfort or limitations. No concerns today. [facility] Medical History [place] (hard of hearing) Balance problem KRANTHI (obstructive sleep apnea) Ambulates with cane Low back pain Slow to wake up after anesthesia Elevated PSA Osteoarthritis of right knee Osteoarthritis of right hip GERD (gastroesophageal reflux disease) Essential (primary) hypertension Surgical History History of tonsillectomy and adenoidectomy History of hip replacement Family History Father No problems noted. Mother No problems noted. Brother No problems noted. Sister No problems noted. Social History Household Members: None Housing: House Are you a primary prompt care rn to a significant other at home: No Do you presently have visiting nurse or other home services: No 75 years or older and lives alone: No Alcohol intake: never Comment: tolerable Patient Tobacco Use Status: Never used Tobacco e-Cigarette/Vaping Use: Never Used Second Hand Smoke Exposure: No service: No Current occupational status: employed Current occupational exposures/hazards: No Cognitive needs: No Hearing needs: No Vision needs: Yes (glasses) Review of Systems Const All systems reviewed & are unremarkable except as noted in HPI and below Physical Exam Extrem Other: Incision well healed no pain with hip ROM or flexion Assessment & Plan Assessment & Plan (1) S/P total right hip arthroplasty: Code(s): Z96.641 - Presence of right artificial hip joint Category: Surgical Plan: Patient will continue to increase activities as tolerated. I stressed the importance of maintaining his strength to prevent painless limp. He will see us back in 3 months with x-rays, sooner if needed. Coding Level of Care Code Est Pt Level 3 (17818) Complex EM visit Add On G2211 Diagnoses S/P total right hip arthroplasty Z96.641
== END 2025-02-02 10:11 | disposition home or self-care (01) ==
LOC: HO.HOS 09:52
PROVIDERS: Visit Provider Physician Assistant
DX: Z47.1 Aftercare following joint replacement surgery (principal); Z96.641 Presence of right artificial hip joint
CPT/HCPCS: 99024

== ENCOUNTER → 2025-02-02 09:52 | Outpatient (BNVA) | payer OTHER, SELFPAY | PROVIDERS: Visit Provider Physician Assistant ==

== ENCOUNTER 2025-02-03 13:50 | Outpatient (AMB) | payer OTHER, SELFPAY ==
--- NOTE | 2025-02-03 13:54 | MHC.PC.OV ---
Vital Signs 02/03/25 13:55 Height 6 ft 3 in Weight 255 lb 8 oz BMI 31.9 BP 132/60 Blood Pressure Location Lt brachial Position Sitting Pulse 89 Pulse Source Pulse Oximeter Temp 97.3 F Temp Source Temporal Artery Scan Pulse Oximetry (%) 97 Oxygen Delivery Method Room Air Intake Visit Reasons: 6mth f/u Intake Note: Patient is here to follow up on HTN, GERD, OA . Fireworks Assembly Supervisor Required: No Horse Exerciser: Not Required per policy Accompanied by: Self / Same As Patient Allergies celecoxib [From Celebrex] Allergy (Verified 02/03/25 13:55) Hives Tobacco use date assessed: 02/03/25 Dental Screening Dental Screen Date: 02/03/25 Did you have a dental visit in the last 12 months?: No Did you have a dental problem in the last 6 months where you did not have access to dental care?: No Was dental information given to patient?: No PFSH Medical History (Updated 11/12/24 @ 00:01 by Janis Lacey) [place] (hard of hearing) Balance problem KRANTHI (obstructive sleep apnea) Ambulates with cane Low back pain Slow to wake up after anesthesia Elevated PSA Osteoarthritis of right knee Osteoarthritis of right hip GERD (gastroesophageal reflux disease) Essential (primary) hypertension Surgical History (Updated 02/03/25 @ 13:59 by LILIANA Harvey) History of right hip replacement History of tonsillectomy and adenoidectomy History of hip replacement Family History Father No problems noted. Mother No problems noted. Brother No problems noted. Sister No problems noted. Social History Household Members: None Housing: House Are you a primary outdoor emergency care technician to a significant other at home: No Do you presently have visiting nurse or other home services: No 75 years or older and lives alone: No Alcohol intake: never Comment: tolerable Patient Tobacco Use Status: Never used Tobacco e-Cigarette/Vaping Use: Never Used Second Hand Smoke Exposure: No service: No Current occupational status: employed Current occupational exposures/hazards: No Cognitive needs: No Hearing needs: No Vision needs: Yes (glasses) Questionnaire PHQ-9 Over the last 2 weeks, how often have you been bothered by any of the following problems? 1. Little interest or pleasure in doing things: not at all 2. Feeling down, depressed, or hopeless: not at all 3. Trouble falling or staying asleep, or sleeping too much: not at all 4. Feeling tired or having little energy: not at all 5. Poor appetite or overeating: not at all 6. Feeling bad about yourself - or that you are a failure or have let yourself or your family down: not at all 7. Trouble concentrating on things, such as reading the newspaper or watching television: not at all 8. Moving or speaking so slowly that other people could have noticed. Or the opposite - being so fidgety or restless that you have been moving around a lot more than usual: not at all 9. Thoughts that you would be better off or of hurting yourself in some way: not at all Total score: 0 Depression Screening Interpretation: Negative Depression Screening Done: Yes Source: Developed by Drs. Juan Philippe, Basilia Abernathy, Guanako Webster and colleagues, with an educational tejal from [employer]. Thrive Questionnaire Date Thrive assessed: 11/10/24 AUDIT C Alcohol Use Questionnaire (AUDIT-C) 1. How often do you have a drink containing alcohol?: Never Total Score: 0 RAN-7 AMB Questionnaire RAN-7 Date RAN - 7 assessed: 02/03/25 Feeling nervous, anxious, or on edge: 0 = Not at all Not being able to stop or control worryin = Not at all Worrying too much about different things: 0 = Not at all Trouble relaxin = Not at all Being so restless that it is hard to sit still: 0 = Not at all Becoming easily annoyed or irritable: 0 = Not at all Feeling afraid as if something awful might happen: 0 = Not at all Total RAN-7 score (0-4 normal; 5-9 mild; 10-14 moderate; 15-21 severe): 0 Source: Developed by Drs. Juan Philippe, Guanako Briceño and colleagues, with an educational tejal from [employer]. Physical exam (Primary Care) Vital Signs: Last Vital Signs Temp 97.3 F 02/03/25 13:55 Pulse 89 02/03/25 13:55 BP 132/60 02/03/25 13:55 Pulse Ox 97 02/03/25 13:55 Oxygen Delivery Method Room Air 02/03/25 13:55 BMI result Body Mass Index 31.9 Tobacco/Smoking Status: Tobacco use Status Tobacco use date assessed 02/03/25 02/03/25 14:00 Patient Tobacco Use Status Never used Tobacco 02/03/25 14:00 e-Cigarette/Vaping Use Never Used 02/03/25 14:00 PHQ-9: PHQ-9 Score PHQ-9: Total score 0 02/03/25 14:00 Depression Screening Interpretation: Negative Thrive Assessment: Date of Thrive Assessment Date Thrive assessed 11/10/24 02/03/25 14:00 Coding Level of Care Code Est Pt Level 4 (18640) Complex EM visit Add On G2211 Diagnoses Osteoarthritis of right hip M16.11 Essential (primary) hypertension I10 Basal cell carcinoma, ear C44.211 Assessment & Plan Assessment & Plan (1) Osteoarthritis of right hip: Code(s): M16.11 - Unilateral primary osteoarthritis, right hip Category: Medical Plan: Significant improvement after the surgery. No longer uses the cane except on occasions. (2) Essential (primary) hypertension: Comment: Continue medications at same dosage. Code(s): I10 - Essential (primary) hypertension Category: Medical Plan: BP in range. Continue medications at same dosage. (3) Basal cell carcinoma, ear: Code(s): C44.211 - Basal cell carcinoma of skin of unspecified ear and external auricular canal Plan: History of Present Illness The patient is a 64-year-old male presenting with a routine follow-up and evaluation of a skin lesion behind the right ear. Post-arthroplasty for osteoarthritis of the hip has significantly improved his quality of life, though he continues to use a cane for longer walks. He has been managing hypertension effectively. Recently retired from long-term employment after an injury-related settlement, he plans to engage in part-time work to stay active. A noticeable skin lesion behind his right ear requires further evaluation. His blood pressure is well controlled, and a recent blood panel indicated normal results. He denied experiencing gastrointestinal discomfort. Social History - Retired from [employer] [[email or web address]] after 41 years of employment. - Received an injury settlement. - Plans to return to part-time work (25?30 hours a week) after taking the summer off. - Uses a cane occasionally, primarily for long walks with his dogs. Review of Systems - Musculoskeletal: Reports improvement post-hip surgery; walking well with occasional tilt in the back. - Dermatological: Reports a pearly-shaped lesion behind the right ear needing biopsy. Physical Exam General: Cooperative and healthy appearing Nutritional Appearance: Well nourished Orientation/consciousness: Patient oriented x3 Limitations: No limitations Head: Normal to inspection General: Appearance normal, both eyes and all related structures Neck: Normal visual inspection Chest: Normal palpation of entire chest wall Respiratory: Normal respiratory effort Neurology: Patient oriented x3 Ear: posterior, right: pearly white lesion with central indentation Results Plan 1. Osteoarthritis Of The Hip - Improved post-surgery mobility; occasional use of cane. 2. Hypertension - Stable blood pressure management. 3. Presence Of A Mass Behind The Right Ear - Biopsy recommended; dermatology referral for evaluation. Discussion Notes I discussed with the patient the positive response to hip arthroplasty, noting the improvement in mobility and the asymptomatic status of his hypertension. We reviewed the presence of a mass behind the right ear, advising a dermatology referral for biopsy due to its pearly characteristics. I confirmed the patient's understanding of the need for consultation and further diagnostic evaluation, explaining the purpose and importance of the biopsy. We acknowledged his controlled hypertension and the effectiveness of ongoing management. Anticipatory guidance was offered regarding potential outcomes of the biopsy, reinforcing the steps to follow post-evaluation. Patient Instructions - Continue current blood pressure management. - Use cane as needed for long walks. - Attend dermatology referral for biopsy of the lesion behind the right ear. - Monitor for any new symptoms, especially related to the skin lesion, and report any changes as discussed.
[2025-02-03 13:55] VITALS: BP 132/60; PULSE 89; TEMP 36.3; O2SAT 97; BMI 31.9
== END 2025-02-03 14:22 | disposition home or self-care (01) ==
LOC: HO.HMCH 13:51
PROVIDERS: PCP Internal Medicine; Visit Provider Internal Medicine
DX: M16.11 Unilateral primary osteoarthritis, right hip (principal); I10 Essential (primary) hypertension; C44.212 Basal cell carcinoma of skin of right ear and external auricular canal

== ENCOUNTER → 2025-02-03 13:50 | Outpatient (BNVA) | payer OTHER, SELFPAY | PROVIDERS: PCP Internal Medicine; Visit Provider Internal Medicine | DX: Z13.89 Encounter for screening for other disorder (principal) ==

== ENCOUNTER 2025-05-09 08:55 | Outpatient (REF) | payer OTHER, SELFPAY ==
--- NOTE | ~2025-05-09 | XR_ITS ---
EXAMINATION: XR PELVIS 1-2 VIEWS HISTORY: M25.559 - Pain in unspecified hip COMPARISON: Comparison is made with the prior examination dated 12/16/2024. FINDINGS: A single AP view of the pelvis is submitted. Osseous mineralization is normal. The patient is status post bilateral total hip arthroplasty. The distal portion of the left femoral stem component is excluded. The prostheses are unchanged in appearance. There is no fracture or dislocation. XR/XR pelvis 1-2V IMPRESSION: Status post bilateral total hip arthroplasty. Electronically signed by: Juan Alexis MD 05/09/2025 11:23 AM EDT
== END 2025-05-09 08:56 | disposition home or self-care (01) ==
LOC: HO.HOSX 08:55
PROVIDERS: Visit Provider Orthopaedic Surgery
DX: Z47.1 Aftercare following joint replacement surgery (principal); M25.551 Pain in right hip; Z96.641 Presence of right artificial hip joint
CPT/HCPCS: 72170

== ENCOUNTER 2025-05-09 10:00 | Outpatient (AMB) | payer OTHER, SELFPAY ==
[2025-05-09 10:10] VITALS: BMI 31.9
--- NOTE | 2025-05-09 10:10 | A.OFFVIS_ITS ---
Vital Signs 05/09/25 10:10 Height 6 ft 3 in Weight 255 lb BMI 31.9 Intake Visit Reasons: OV-3mth R RENETTA w/NE 11/09/24 Intake Note: Demetrius is a 64 year old male who presents today for a post operative visit about 5 months s/p RT RENETTA, DOS 11/09/24. At his last visit we discussed the importance of strengthening. States he is doing well, he no longer has pain in anterior aspect of knee and is able to walk his dog with no issues. He continues to do home exercise. Allergies celecoxib (From Celebrex) Allergy (Verified 05/09/25 10:15) Hives HPI HPI OV-3mth R RENETTA w/NE 11/09/24: Details: Demetrius is a 64 year old male who presents today for a post operative visit about 6months s/p RT RENETTA, DOS 11/09/24. At his last visit we discussed the importance of strengthening. States he is doing well, he no longer has pain in anterior aspect of knee and is able to walk his dog with no issues. He continues to do home exercise. [facility] Medical History (Updated 11/12/24 @ 00:01 by Janis Lacey) [place] (hard of hearing) Balance problem KRANTHI (obstructive sleep apnea) Ambulates with cane Low back pain Slow to wake up after anesthesia Elevated PSA Osteoarthritis of right knee Osteoarthritis of right hip GERD (gastroesophageal reflux disease) Essential (primary) hypertension Surgical History History of right hip replacement History of tonsillectomy and adenoidectomy History of hip replacement Family History Father No problems noted. Mother No problems noted. Brother No problems noted. Sister No problems noted. Social History Household Members: None Housing: House Are you a primary acute care registered nurse to a significant other at home: No Do you presently have visiting nurse or other home services: No 75 years or older and lives alone: No Alcohol intake: never Comment: tolerable Patient Tobacco Use Status: Never used Tobacco e-Cigarette/Vaping Use: Never Used Second Hand Smoke Exposure: No service: No Current occupational status: employed Current occupational exposures/hazards: No Cognitive needs: No Hearing needs: No Vision needs: Yes (glasses) Physical Exam Vital Signs: BMI result Body Mass Index 31.9 Extrem Other: No gait antalgia Dorsalis pedis 2+ No pain with hip range of motion Results Reviewed Results Reviewed: I personally reviewed relevant radiographs. Right RENETTA in expected post operative position with no hardware complications or evidence of loosening Assessment & Plan Assessment & Plan (1) S/P total right hip arthroplasty: Code(s): Z96.641 - Presence of right artificial hip joint Category: Surgical Plan: Status post right hip replacement doing well. He had a severe problem and it is certainly improved dramatically. He is active and healthy in his no complaints. May follow up as needed. Dental prophylaxis discussed. Orders: Orders XR pelvis 1-2V Today M25.559 - Pain in unspecified hip Coding Level of Care Code Est Pt Level 3 (79536) Diagnoses S/P total right hip arthroplasty Z96.641
== END 2025-05-09 10:46 | disposition home or self-care (01) ==
LOC: HO.HOS 10:01
PROVIDERS: Visit Provider Orthopaedic Surgery
DX: Z47.1 Aftercare following joint replacement surgery (principal); Z96.641 Presence of right artificial hip joint
CPT/HCPCS: 99213

== ENCOUNTER → 2025-05-09 10:02 | Outpatient (BNV) | payer OTHER, SELFPAY | PROVIDERS: Visit Provider Radiology Diagnostic Radiology | DX: Z96.641 Presence of right artificial hip joint (principal) | CPT/HCPCS: 72170 ==

== ENCOUNTER 2025-05-25 08:40 | Outpatient (AMB) | payer OTHER, SELFPAY ==
--- NOTE | 2025-05-25 08:41 | A.OFFVIS_ITS ---
Intake Visit Reasons: follow up Intake Note: Patient is present for: follow up Urology Medication:TAMSULOSIN Blood Thinner:NONE TODAY'S PVR: 217 mls Category Specialist Required: No Accompanied by: Self / Same As Patient Allergies celecoxib (From Celebrex) Allergy (Verified 05/25/25 08:43) Hives HPI Comments Details: Demetrius is a pleasant male. He is a patient of Dr. Simpson. He is seen for the following urologic conditions - variable PSA - lower tract symptoms Six-month follow-up Current PVR high. Known trabeculated bladder. Happy with current urinary performance Over 24 in stream Would prefer to stay on medication to follow up in 12 month Bladder US - 09/21 Prevoid bladder volume is 432 mL. Postvoid bladder volume is 55 mL.. Enlarged prostate with volume 40.9 mL. Diffuse trabeculation of the bladder wall. Refill tamsulosin 90 days Discussed GreenLight laser procedure Review in six-month Lower urinary tract symptoms Predominantly urgency and frequency Tamsulosin Variable PSA - 04/20 7, 04/21 4.8 PFSH Medical History (Updated 11/12/24 @ 00:01 by Janis Lacey) [place] (hard of hearing) Balance problem KRANTHI (obstructive sleep apnea) Ambulates with cane Low back pain Slow to wake up after anesthesia Elevated PSA Osteoarthritis of right knee Osteoarthritis of right hip GERD (gastroesophageal reflux disease) Essential (primary) hypertension Surgical History History of right hip replacement History of tonsillectomy and adenoidectomy History of hip replacement Family History Father No problems noted. Mother No problems noted. Brother No problems noted. Sister No problems noted. Social History Household Members: None Housing: House Are you a primary hearing care practitioner to a significant other at home: No Do you presently have visiting nurse or other home services: No 75 years or older and lives alone: No Alcohol intake: never Comment: tolerable Patient Tobacco Use Status: Never used Tobacco e-Cigarette/Vaping Use: Never Used Second Hand Smoke Exposure: No service: No Current occupational status: employed Current occupational exposures/hazards: No Cognitive needs: No Hearing needs: No Vision needs: Yes (glasses) Review of Systems Const Denies chills and Denies fever(s) Card Reports no additional complaints and Denies syncope Resp Denies cough GI Denies abdominal pain and Denies heartburn Reports as per HPI and Denies change in libido Neuro Denies syncope Psych Denies change in libido Endo Denies change in libido Physical Exam Const General: cooperative, healthy appearing, comfortable and no acute distress Orientation/consciousness: patient oriented x3 HEENT Face and sinus: Yes normal facial exam Mouth: moist mucous membranes Neck Neck: Yes normal visual inspection, Yes full ROM and Yes trachea midline Chest Chest palpation & inspection: normal inspection of the chest Resp Effort & Inspection: normal respiratory effort, able to speak in complete sentences and no respiratory distress GI Inspection: Yes normal to inspection Back/Spine/Pelvis Cervical Spine: normal cervical lordosis Thoracic/Lumbar Spine: thoracic and lumbar spine normal to inspection Skin General skin exam: no rashes or lesions noted Neuro General: patient oriented x3, gait normal, tone normal and moves all extremities Extrem General: Yes normal to inspection and Yes capillary refill normal Office Procedures Post Void Residual Post Residual Void Post Void Residual (PVR): 217 [id number] Void Residual by ultrasound Assessment & Plan Assessment & Plan (1) Urinary urgency: Code(s): R39.15 - Urgency of urination Category: Medical (2) Bladder outlet obstruction: Code(s): N32.0 - Bladder-neck obstruction Category: Medical Plan Twelve month follow-up Orders: Orders AMB Post Void Residual by ultrasound Today N32.0 - Bladder-neck obstruction Prostate Specific Antigen 12 Months N32.0 - Bladder-neck obstruction Medications: Refilled tamsulosin (Flomax) 0.4 mg PO BEDTIME 90 tabs 3RF 90 days R39.15 - Urgency of urination Patient Instructions: This note is constructed using voice recognition software. While every effort has been made to ensure accuracy architectural draftsperson errors may have been included. Imaging studies, laboratory and physical exam results were discussed and reviewed in detail. No major barriers to patient understanding were identified. An opportunity to ask questions regarding the treatment plan was provided. All questions were answered. The patient expressed understanding and agreement with the above treatment plan. The patient is aware they should contact our office by phone for worsening of their current condition or the appearance of new urologic symptoms. Compliance is encouraged with any medications and followup testing that is ordered. It is a privilege to participate in the urologic care of your patient. If you have any questions or concerns regarding treatment for the above conditions, or other urologic issues, please do not hesitate to contact me. The office telephone contact is [phone]. Sincerely, Dr Gustavo Romero MD, [facility] - Urology Compassionate Specialist Care for the Genitourinary System Coding Level of Care Code Est Pt Level 3 (16491) Diagnoses Urinary urgency R39.15 Bladder outlet obstruction N32.0 CPT Codes Post Residual Void - PVR CPT Code: 81920-Ibff Void Residual by ultrasound ([id number])
== END 2025-05-25 09:11 | disposition home or self-care (01) ==
LOC: HO.HUSH 08:41
PROVIDERS: PCP Internal Medicine; Visit Provider Urology
DX: R39.15 Urgency of urination (principal); N32.0 Bladder-neck obstruction
CPT/HCPCS: 99213

== ENCOUNTER → 2025-05-25 08:40 | Outpatient (BNVA) | payer OTHER, SELFPAY | PROVIDERS: PCP Internal Medicine; Visit Provider Urology | DX: N32.0 Bladder-neck obstruction (principal); R39.15 Urgency of urination | CPT/HCPCS: 51798 ==

== ENCOUNTER 2025-08-10 14:10 | Outpatient (AMB) | payer OTHER, SELFPAY ==
--- NOTE | 2025-08-10 14:15 | MHC.PC.OV ---
Vital Signs 08/10/25 14:17 Height 6 ft 3 in Weight 266 lb 8 oz BMI 33.3 BP 160/90 H Blood Pressure Location Lt brachial Position Sitting Pulse 84 Pulse Source Pulse Oximeter Temp 97.3 F Temp Source Temporal Artery Scan Pulse Oximetry (%) 97 Oxygen Delivery Method Room Air Intake Visit Reasons: follow up - see comments Intake Note: Patient is here to follow up on HTN, GERD, OA. 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 Specialist Required: No Business Support Coordinator: Not Required per policy Accompanied by: Self / Same As Patient Allergies celecoxib (From Celebrex) Allergy (Verified 08/10/25 14:16) Hives Tobacco use date assessed: 08/10/25 Dental Screening Dental Screen Date: 02/03/25 [facility] Medical History (Updated 11/12/24 @ 00:01 by Janis Lacey) [place] (hard of hearing) Balance problem KRANTHI (obstructive sleep apnea) Ambulates with cane Low back pain Slow to wake up after anesthesia Elevated PSA Osteoarthritis of right knee Osteoarthritis of right hip GERD (gastroesophageal reflux disease) Essential (primary) hypertension Surgical History History of right hip replacement History of tonsillectomy and adenoidectomy History of hip replacement Family History Father No problems noted. Mother No problems noted. Brother No problems noted. Sister No problems noted. Social History Household Members: None Housing: House Are you a primary client care manager to a significant other at home: No Do you presently have visiting nurse or other home services: No 75 years or older and lives alone: No Alcohol intake: never Comment: tolerable Patient Tobacco Use Status: Never used Tobacco e-Cigarette/Vaping Use: Never Used Second Hand Smoke Exposure: No service: No Current occupational status: employed Current occupational exposures/hazards: No Cognitive needs: No Hearing needs: No Vision needs: Yes (glasses) Questionnaire PHQ-9 Over the last 2 weeks, how often have you been bothered by any of the following problems? 2. Feeling down, depressed, or hopeless: not at all 3. Trouble falling or staying asleep, or sleeping too much: not at all Depression Screening Interpretation: Negative Depression Screening Done: Yes Source: Developed by Drs. Juan Philippe, Basilia Abernathy, Guanako Webster and colleagues, with an educational tejal from [employer]. Thrive Questionnaire Date Thrive assessed: 11/10/24 RAN-7 AMB Questionnaire RAN-7 Date RAN - 7 assessed: 02/03/25 Source: Developed by Drs. Juan Philippe, Basilia Abernathy, Guanako Webster and colleagues, with an educational tejal from [employer]. Physical exam (Primary Care) Vital Signs: Last Vital Signs Temp 97.3 F 08/10/25 14:17 Pulse 84 08/10/25 14:17 BP 160/90 H 08/10/25 14:17 Pulse Ox 97 08/10/25 14:17 Oxygen Delivery Method Room Air 08/10/25 14:17 BMI result Body Mass Index 33.3 Tobacco/Smoking Status: Tobacco use Status Tobacco use date assessed 08/10/25 08/10/25 14:23 Patient Tobacco Use Status Never used Tobacco 08/10/25 14:23 e-Cigarette/Vaping Use Never Used 08/10/25 14:23 Depression Screening Interpretation: Negative Thrive Assessment: Date of Thrive Assessment Date Thrive assessed 11/10/24 08/10/25 14:23 Coding Level of Care Code Est Pt Level 4 (43494) Complex EM visit Add On G2211 Diagnoses Essential (primary) hypertension I10 Assessment & Plan Assessment & Plan (1) Essential (primary) hypertension: Comment: Continue medications at same dosage. Code(s): I10 - Essential (primary) hypertension Category: Medical Plan: History of Present Illness - The patient is a 64-year-old male presenting for a follow-up visit for chronic condition management and preventative care. - He reports he feels fantastic after a recent hip replacement and also has no pain in the contralateral hip, which was replaced ten years ago. - He notes that prior to surgery, pain radiated to his knee and leg, but this has since resolved. - Regarding his hypertension, his blood pressure was elevated at today's visit, which he attributes to consuming a caffeinated soda beforehand. - He reports taking his lisinopril daily but does not monitor his blood pressure at home. - The patient also reports having gained some weight. - He has not yet received his influenza vaccine for the year. Social History - Employment: The patient recently retired but is seeking a part-time job, as he states he cannot tolerate being inactive after previously working 80 hours per week. - Financial: He received a settlement for a prior knee injury and notes that [facility] increased after being classified as a [facility]. Review of Systems - Constitutional: Reports weight gain. - Musculoskeletal: Denies hip pain post-operatively and reports resolution of previous radiating pain to his knee and leg. Physical Exam General: Cooperative and healthy appearing Nutritional Appearance: Well nourished Orientation/consciousness: Patient oriented x3 Limitations: No limitations Head: Normal to inspection General: Appearance normal, both eyes and all related structures Neck: Normal visual inspection Chest: Normal palpation of entire chest wall Respiratory: Normal respiratory effort Neurology: Patient oriented x3 Results Plan - Hypertension: The lisinopril dosage will be doubled to 20 mg, to be taken as two pills together once daily. - Preventative Care: An influenza vaccine will be administered today. Discussion Notes I discussed the patient's elevated blood pressure reading with him. To improve his blood pressure control, I recommended increasing his lisinopril dose to 20 mg daily by taking two pills together, and he agreed to start this new regimen tomorrow morning. We also discussed preventative care, and he consented to receive an influenza vaccination during today's visit. Patient Instructions - Starting tomorrow morning, please take two of your lisinopril pills together. This will increase your daily dose to 20 mg. - You will receive a flu shot today in the office. Orders: Orders Influenza [id number] Immunization Today Z23 - Encounter for immunization Medications: New Fluarix [id number] (PF) (flu vac ts (6mos up)-PF) 0.5 mL IM ONCE 0.5 mL 0RF NS Z23 - Encounter for immunization Changed From enalapril maleate 10 mg PO DAILY 90 tabs 1RF To enalapril maleate 20 mg (2 x 10 mg) PO DAILY 90 tabs 1RF
[2025-08-10 14:17] VITALS: BP 160/90; PULSE 84; TEMP 36.3; O2SAT 97; BMI 33.3
== END 2025-08-10 16:14 | disposition home or self-care (01) ==
LOC: HO.HMCH 14:10
PROVIDERS: PCP Internal Medicine; Visit Provider Internal Medicine
DX: Z23 Encounter for immunization (principal); I10 Essential (primary) hypertension

== ENCOUNTER → 2025-08-10 14:10 | Outpatient (BNVA) | payer OTHER, SELFPAY | PROVIDERS: PCP Internal Medicine; Visit Provider Internal Medicine | DX: I10 Essential (primary) hypertension (principal); Z23 Encounter for immunization; Z96.643 Presence of artificial hip joint, bilateral | CPT/HCPCS: 90471; 90656 ==